=== PATIENT | female | born 1960 | race Caucasian/White ===

== ENCOUNTER 2022-01-21 18:14 | Inpatient (IN) | payer MEDICARE, OTHER ==
[~2022-01-21] VITALS: Ht 147.3 cm; Wt 108.7 kg
[2022-01-21 19:45] LABS: BASOPHILS # (AUTO) 0.1 (0.0-0.1); BASOPHILS % 0.3 % (0.0-1.0); EOSINOPHILS # (AUTO) 0.2 (0.0-0.4); EOSINOPHILS % 1.3 % (0.0-6.0); HEMATOCRIT 24.9 % (34.2-44.1); LYMPHOCYTES # (AUTO) 1.3 (1.0-3.2); LYMPHOCYTES % 7.4 % (18.0-39.1); MEAN CORPUSCULAR HEMOGLOBIN 28.9 pg (28-32); MEAN CORPUSCULAR HGB CONC 32.1 g/dL (31-35); MEAN CORPUSCULAR VOLUME 89.9 fL (81-99); MONOCYTES # (AUTO) 1.4 (0.2-0.8); MONOCYTES % 7.9 % (4.4-11.3); NEUTROPHILS # (AUTO) 14.2 (2.1-6.9); NEUTROPHILS % 82.5 % (38.7-80.0); PLATELET COUNT 427 x10e3/uL (140-360); RED BLOOD COUNT 2.77 x10e6/uL (3.6-5.1); RED CELL DISTRIBUTION WIDTH 13.2 % (11.7-14.4)
[2022-01-21 20:04] LABS: ALBUMIN 1.8 g/dL (3.5-5.0); ALBUMIN/GLOBULIN RATIO 0.3 (0.8-2.0); CALCIUM 9.4 mg/dL (8.4-10.2); CREATININE, SERUM 2.42 mg/dL (0.57-1.11)
[2022-01-21] MEDS ORDERED: ACETAMINOPHEN 325 MG TAB PO ONE (20:15)
[2022-01-21 20:23] LABS: CLARITY,URINE SL CLOUDY (CLEAR); COLOR,URINE YELLOW (YELLOW); KETONES,URINE NEGATIVE (NEGATIVE); LEUKOCYTE ESTERASE ,URINE NEGATIVE (NEGATIVE); NITRITE,URINE NEGATIVE (NEGATIVE); PROTEIN,URINE DIPSTICK >=300 (NEGATIVE); URINE UROBILINOGEN 0.2 mg/dL (0.2 - 1)
[2022-01-21] MEDS ORDERED: HEPARIN SOD (PORCINE) 5,000 UNIT/ML VIAL IV ONE ×2 (20:30→21:15)
[2022-01-21] MEDS ORDERED: SODIUM CHLORIDE 0.9% 1000ML 1,000 ML IV SCH ×2 (20:30→21:00)
[2022-01-21] MEDS ORDERED: HEPARIN 25,000 UNIT 25,000 UNIT in DEXTROSE 5% 250ML 250 ML IV SCH (20:30)
[2022-01-21] MEDS ORDERED: ASPIRIN 81 MG CHEW TAB PO ONE ×2 (20:30→21:00)
[2022-01-21] MEDS ORDERED: SODIUM CHLORIDE 0.9% 1000ML 1,000 ML ONE (20:30)
[2022-01-21 20:34] LABS: RBC,URINE 0-5 /HPF (0-5)
[2022-01-21 20:35] LABS: BACTERIA,URINE MODERATE /HPF; EPITHELIAL CELLS,URINE MANY /LPF
[2022-01-21 20:58] LABS: INR 1.19; PROTHROMBIN TIME 16.1 seconds (11.9-14.5)
[2022-01-21] MEDS ORDERED: Morphine 4mg Syringe 4 MG/ML INJ IV PRN (21:00)
[2022-01-21] MEDS ORDERED: ONDANSETRON HCL INJ 2MG/ML 2ML 2 MG/ML VIAL IV PRN (21:00)
[2022-01-21] MEDS: PIPERACILLIN/TAZOBACTAM 4.5 GM in SODIUM CHLORIDE 0.9% 100 ML IV SCH (21:21)
[2022-01-21] MEDS ORDERED: HEPARIN SOD (PORCINE) 5,000 UNIT/ML VIAL ONE (21:26)
[2022-01-21] MEDS ORDERED: HEPARIN 25,000 UNIT DRIP IV ONE (21:27)
[2022-01-21 22:11] VITALS: BP 116/40
[2022-01-21 22:17] VITALS: BP 116/40
[2022-01-21] MEDS: SODIUM CHLORIDE 0.9% 1000ML 1,000 ML IV SCH (22:48)
[2022-01-22] VITALS (8 sets, daily range): BP systolic 128–167; BP diastolic 50–63
[2022-01-22] MEDS ORDERED: BUMETANIDE2 MG PO (00:51)
[2022-01-22] MEDS ORDERED: BRIMONIDINE TART5 ML OU (00:51)
[2022-01-22] MEDS ORDERED: ATORVASTATIN CA40 MG PO (00:51)
[2022-01-22] MEDS ORDERED: MUPIROCIN22 GM TOP (00:51)
[2022-01-22] MEDS ORDERED: FAMOTIDINE20 MG PO (00:51)
[2022-01-22] MEDS ORDERED: CLOPIDOGREL75 MG PO (00:51)
[2022-01-22] MEDS ORDERED: ASPIRIN EC81 MG PO (00:51)
[2022-01-22] MEDS ORDERED: VITAMIN D2 PO (00:51)
[2022-01-22] MEDS ORDERED: NOVOLOG100 UNITS1 SQ (00:51)
[2022-01-22] MEDS ORDERED: METOLAZONE2.5 MG PO (00:51)
[2022-01-22] MEDS ORDERED: VALSARTAN40 MG PO (00:51)
[2022-01-22] MEDS ORDERED: LOPRESSOR25 MG PO (00:51)
[2022-01-22] MEDS ORDERED: DULOXETINE HCL60 MG PO (00:51)
[2022-01-22] MEDS ORDERED: TRESIBA FL200 UNIT/1 SQ (00:51)
[2022-01-22] MEDS ORDERED: DORZOLAMIDE-TIM10 ML PO (00:51)
[2022-01-22] MEDS ORDERED: LATANOPROST2.5 ML OU (00:51)
[2022-01-22 03:12] LABS: CREATINE KINASE MB 2.1 ng/mL (0-5.0)
[2022-01-22] MEDS: SODIUM CHLORIDE 0.9% 1000ML 1,000 ML IV SCH (06:49)
[2022-01-22 08:44] LABS: BASOPHILS # (AUTO) 0.1 (0.0-0.1); BASOPHILS % 0.4 % (0.0-1.0); EOSINOPHILS # (AUTO) 0.6 (0.0-0.4); EOSINOPHILS % 4.1 % (0.0-6.0); LYMPHOCYTES # (AUTO) 1.6 (1.0-3.2); LYMPHOCYTES % 11.7 % (18.0-39.1); MEAN CORPUSCULAR HEMOGLOBIN 28.6 pg (28-32); MEAN CORPUSCULAR HGB CONC 31.1 g/dL (31-35); MEAN CORPUSCULAR VOLUME 91.8 fL (81-99); MONOCYTES # (AUTO) 1.1 (0.2-0.8); MONOCYTES % 7.8 % (4.4-11.3); NEUTROPHILS # (AUTO) 10.6 (2.1-6.9); NEUTROPHILS % 75.6 % (38.7-80.0); PLATELET COUNT 380 x10e3/uL (140-360); RED BLOOD COUNT 2.31 x10e6/uL (3.6-5.1); RED CELL DISTRIBUTION WIDTH 13.3 % (11.7-14.4)
[2022-01-22 08:51] LABS: HEMATOCRIT 21.2 % (34.2-44.1); HEMOGLOBIN 6.6 g/dL (12.0-16.0)
[2022-01-22 09:21] LABS: ANION GAP 14.1 mmol/L (8-16); CREATININE, SERUM 2.57 mg/dL (0.57-1.11); POTASSIUM 4.1 mmol/L (3.5-5.1)
[2022-01-22] MEDS ORDERED: SODIUM CHLORIDE 0.9% 250ML 250 ML IV ONE (10:30)
[2022-01-22] MEDS ORDERED: DIPHENHYDRAMINE HCL INJ 50 MG/ML VIAL IV ONE (10:30)
[2022-01-22] MEDS ORDERED: DEXTROSE 50% SYRINGE 50 ML IV PRN (10:30)
[2022-01-22] MEDS ORDERED: ACETAMINOPHEN 325 MG TAB PO ONE (10:45)
[2022-01-22] MEDS ORDERED: HYDROCODONE/APAP 10MG-325MG TAB PO PRN (10:45)
[2022-01-22] MEDS ORDERED: SODIUM CHLORIDE 0.9% 250ML 250 ML IV NR (11:00)
[2022-01-22] MEDS: DULOXETINE HCL 30 MG DELAYED RELEASE PO SCH (11:40)
[2022-01-22] MEDS: METOPROLOL TARTRATE 25 MG TAB PO SCH ×2 (11:40→15:42)
[2022-01-22] MEDS: INSULIN LISPRO 100 UNIT/1 ML 3ML VIAL SQ SCH ×5 (11:41→21:00)
[2022-01-22] MEDS: PIPERACILLIN/TAZOBACTAM 4.5 GM in SODIUM CHLORIDE 0.9% 100 ML IV SCH ×2 (11:42→21:50)
[2022-01-22] MEDS: DORZOLAMIDE/TIMOLOL (OPTH SOL) 10 ML DRPETTE OP SCH ×2 (11:42→22:30)
[2022-01-22 11:50] LABS: THYROID STIMULATING HORMONE 1.828 uIU/mL (0.350-4.940)
[2022-01-22] MEDS: BRIMONIDINE TARTRATE (OPTH) 5 ML LIQD OP SCH ×2 (15:42→21:00)
[2022-01-22] MEDS: SENNA-S TABLET PO SCH (15:42)
[2022-01-22 15:50] LABS: CREATINE KINASE MB 3.5 ng/mL (0-5.0)
[2022-01-22] MEDS ORDERED: DIPHENHYDRAMINE HCL INJ 50 MG/ML VIAL ONE ×2 (16:50→17:22)
[2022-01-22] MEDS ORDERED: ACETAMINOPHEN 325 MG TAB ONE (16:51)
[2022-01-22] MEDS ORDERED: SODIUM CHLORIDE 0.9% 250ML 250 ML ONE ×2 (19:57→22:15)
[2022-01-22] MEDS ORDERED: INSULIN DEGLUDEC SC SCH (21:00)
[2022-01-22] MEDS: LATANOPROST(OPTH) 2.5 ML BTL OU SCH (21:55)
[2022-01-22] MEDS: ATORVASTATIN 40 MG TAB PO SCH (21:55)
[2022-01-22] MEDS: FAMOTIDINE 20 MG TAB PO SCH (21:55)
[2022-01-23] VITALS: BP 147/64
[2022-01-23 04:00] VITALS: BP 125/46
[2022-01-23 06:08] LABS: BASOPHILS # (AUTO) 0.1 (0.0-0.1); BASOPHILS % 0.4 % (0.0-1.0); EOSINOPHILS # (AUTO) 0.8 (0.0-0.4); EOSINOPHILS % 5.4 % (0.0-6.0); HEMATOCRIT 27.8 % (34.2-44.1); HEMOGLOBIN 8.8 g/dL (12.0-16.0); LYMPHOCYTES % 13.6 % (18.0-39.1); MEAN CORPUSCULAR HEMOGLOBIN 28.8 pg (28-32); MEAN CORPUSCULAR HGB CONC 31.7 g/dL (31-35); MEAN CORPUSCULAR VOLUME 90.8 fL (81-99); MONOCYTES # (AUTO) 1.2 (0.2-0.8); MONOCYTES % 8.3 % (4.4-11.3); NEUTROPHILS # (AUTO) 10.4 (2.1-6.9); NEUTROPHILS % 71.5 % (38.7-80.0); PLATELET COUNT 365 x10e3/uL (140-360); RED BLOOD COUNT 3.06 x10e6/uL (3.6-5.1); RED CELL DISTRIBUTION WIDTH 14.1 % (11.7-14.4)
[2022-01-23 06:36] LABS: ANION GAP 11.3 mmol/L (8-16); CALCIUM 9.1 mg/dL (8.4-10.2); CREATININE, SERUM 2.41 mg/dL (0.57-1.11); POTASSIUM 4.3 mmol/L (3.5-5.1)
[2022-01-23] MEDS: INSULIN LISPRO 100 UNIT/1 ML 3ML VIAL SQ SCH ×6 (07:30→21:00)
[2022-01-23] MEDS ORDERED: FUROSEMIDE INJ 10 MG/ML 4 ML VIAL IV ONE (07:30)
[2022-01-23 08:00] VITALS: BP 125/46
[2022-01-23] MEDS: PIPERACILLIN/TAZOBACTAM 4.5 GM in SODIUM CHLORIDE 0.9% 100 ML IV SCH ×2 (09:00→21:00)
[2022-01-23] MEDS: DULOXETINE HCL 30 MG DELAYED RELEASE PO SCH (09:00)
[2022-01-23] MEDS: MUPIROCIN 2% OINT 22 GM TUBE TOP SCH (09:00)
[2022-01-23] MEDS: BRIMONIDINE TARTRATE (OPTH) 5 ML LIQD OP SCH ×2 (09:00→17:00)
[2022-01-23] MEDS ORDERED: Vancomycin IV 750 MG in SODIUM CHLORIDE 0.9% 250ML 150 ML IV SCH (10:00)
[2022-01-23] MEDS: DORZOLAMIDE/TIMOLOL (OPTH SOL) 10 ML DRPETTE OP SCH ×2 (10:06→21:56)
[2022-01-23] MEDS: SENNA-S TABLET PO SCH ×2 (11:00→17:00)
[2022-01-23] MEDS: METOPROLOL TARTRATE 25 MG TAB PO SCH ×2 (11:00→17:00)
[2022-01-23] MEDS: IRON SUCROSE 100 MG in SODIUM CHLORIDE 0.9% 100 ML 100 ML IV SCH (12:00)
[2022-01-23] MEDS ORDERED: ENOXAPARIN SOD INJ 40 MG/0.4 ML SYR SC SCH (17:00)
[2022-01-23 20:00] VITALS: BP 101/34
[2022-01-23] MEDS: LATANOPROST(OPTH) 2.5 ML BTL OU SCH (21:00)
[2022-01-23] MEDS: FAMOTIDINE 20 MG TAB PO SCH (21:00)
[2022-01-23] MEDS: ATORVASTATIN 40 MG TAB PO SCH (21:00)
[2022-01-23] MEDS ORDERED: HOME MEDICATION--PATIENTS OWN SC SCH (21:00)
[2022-01-23 23:56] VITALS: BP 101/34
[2022-01-24] VITALS: BP 141/56
[2022-01-24 04:00] VITALS: BP 146/65
[2022-01-24 05:44] LABS: BASOPHILS # (AUTO) 0.1 (0.0-0.1); BASOPHILS % 0.5 % (0.0-1.0); EOSINOPHILS # (AUTO) 0.7 (0.0-0.4); EOSINOPHILS % 4.7 % (0.0-6.0); HEMOGLOBIN 8.6 g/dL (12.0-16.0); LYMPHOCYTES # (AUTO) 1.6 (1.0-3.2); LYMPHOCYTES % 11.5 % (18.0-39.1); MEAN CORPUSCULAR HEMOGLOBIN 29.1 pg (28-32); MEAN CORPUSCULAR HGB CONC 31.9 g/dL (31-35); MEAN CORPUSCULAR VOLUME 91.2 fL (81-99); MONOCYTES # (AUTO) 1.2 (0.2-0.8); MONOCYTES % 8.5 % (4.4-11.3); NEUTROPHILS # (AUTO) 10.5 (2.1-6.9); NEUTROPHILS % 74.1 % (38.7-80.0); PLATELET COUNT 385 x10e3/uL (140-360); RED BLOOD COUNT 2.96 x10e6/uL (3.6-5.1); RED CELL DISTRIBUTION WIDTH 14.6 % (11.7-14.4)
[2022-01-24 05:59] LABS: ANION GAP 12.7 mmol/L (8-16); CALCIUM 9.1 mg/dL (8.4-10.2); CREATININE, SERUM 3.04 mg/dL (0.57-1.11); POTASSIUM 4.7 mmol/L (3.5-5.1)
[2022-01-24] MEDS: INSULIN LISPRO 100 UNIT/1 ML 3ML VIAL SQ SCH ×7 (07:30→21:22)
[2022-01-24 07:58] VITALS: BP 105/43
[2022-01-24] MEDS: PIPERACILLIN/TAZOBACTAM 4.5 GM in SODIUM CHLORIDE 0.9% 100 ML IV SCH (09:20)
[2022-01-24] MEDS: METOPROLOL TARTRATE 25 MG TAB PO SCH ×2 (09:25→17:13)
[2022-01-24] MEDS: DULOXETINE HCL 30 MG DELAYED RELEASE PO SCH (09:25)
[2022-01-24] MEDS: SENNA-S TABLET PO SCH ×2 (09:25→17:13)
[2022-01-24] MEDS: MUPIROCIN 2% OINT 22 GM TUBE TOP SCH (09:26)
[2022-01-24] MEDS: BRIMONIDINE TARTRATE (OPTH) 5 ML LIQD OP SCH ×2 (09:31→17:13)
[2022-01-24] MEDS: DORZOLAMIDE/TIMOLOL (OPTH SOL) 10 ML DRPETTE OP SCH ×2 (09:31→22:30)
[2022-01-24 12:00] VITALS: BP 138/57
[2022-01-24] MEDS: IRON SUCROSE 100 MG in SODIUM CHLORIDE 0.9% 100 ML 100 ML IV SCH (13:45)
[2022-01-24] MEDS: SODIUM CHLORIDE 0.9% 1000ML 1,000 ML IV SCH (13:45)
[2022-01-24] MEDS: LINEZOLID 600 MG/D5W 300ML 300 ML IV SCH (15:00)
[2022-01-24 16:00] VITALS: BP 144/53
[2022-01-24] MEDS: ENOXAPARIN 30 MG/0.3 ML SYR SC SCH (17:13)
[2022-01-24 20:00] VITALS: BP 167/61
[2022-01-24] MEDS: LATANOPROST(OPTH) 2.5 ML BTL OU SCH (21:22)
[2022-01-24] MEDS: ATORVASTATIN 40 MG TAB PO SCH (21:22)
[2022-01-24] MEDS: FAMOTIDINE 20 MG TAB PO SCH (21:22)
[2022-01-25] VITALS (9 sets, daily range): BP systolic 100–169; BP diastolic 56–89
[2022-01-25] MEDS: LINEZOLID 600 MG/D5W 300ML 300 ML IV SCH ×2 (03:00→14:43)
[2022-01-25] MEDS: SODIUM CHLORIDE 0.9% 1000ML 1,000 ML IV SCH ×3 (03:48→22:22)
[2022-01-25 06:00] LABS: BASOPHILS # (AUTO) 0.1 (0.0-0.1); BASOPHILS % 0.4 % (0.0-1.0); EOSINOPHILS # (AUTO) 0.4 (0.0-0.4); EOSINOPHILS % 3.2 % (0.0-6.0); HEMATOCRIT 27.8 % (34.2-44.1); HEMOGLOBIN 8.5 g/dL (12.0-16.0); LYMPHOCYTES # (AUTO) 1.2 (1.0-3.2); LYMPHOCYTES % 8.7 % (18.0-39.1); MEAN CORPUSCULAR HEMOGLOBIN 28.7 pg (28-32); MEAN CORPUSCULAR HGB CONC 30.6 g/dL (31-35); MEAN CORPUSCULAR VOLUME 93.9 fL (81-99); MONOCYTES # (AUTO) 1.1 (0.2-0.8); MONOCYTES % 8.1 % (4.4-11.3); NEUTROPHILS # (AUTO) 10.8 (2.1-6.9); NEUTROPHILS % 78.6 % (38.7-80.0); PLATELET COUNT 398 x10e3/uL (140-360); RED BLOOD COUNT 2.96 x10e6/uL (3.6-5.1); RED CELL DISTRIBUTION WIDTH 14.6 % (11.7-14.4)
[2022-01-25 06:37] LABS: ALBUMIN 1.7 g/dL (3.5-5.0); ALBUMIN/GLOBULIN RATIO 0.3 (0.8-2.0); CALCIUM 9.4 mg/dL (8.4-10.2); CREATININE, SERUM 3.58 mg/dL (0.57-1.11); VANCOMYCIN,RANDOM 4.8 ug/mL
[2022-01-25] MEDS: INSULIN LISPRO 100 UNIT/1 ML 3ML VIAL SQ SCH ×7 (07:30→21:00)
[2022-01-25] MEDS: MUPIROCIN 2% OINT 22 GM TUBE TOP SCH (09:00)
[2022-01-25] MEDS: CEFTRIAXONE 2 GM in SODIUM CHLORIDE 0.9% 100 ML IV SCH (09:16)
[2022-01-25] MEDS: DULOXETINE HCL 30 MG DELAYED RELEASE PO SCH (09:18)
[2022-01-25] MEDS: METOPROLOL TARTRATE 25 MG TAB PO SCH (09:18)
[2022-01-25] MEDS: SENNA-S TABLET PO SCH ×2 (09:19→17:26)
[2022-01-25] MEDS: BRIMONIDINE TARTRATE (OPTH) 5 ML LIQD OP SCH ×2 (09:22→17:26)
[2022-01-25] MEDS: DORZOLAMIDE/TIMOLOL (OPTH SOL) 10 ML DRPETTE OP SCH ×2 (11:30→22:21)
[2022-01-25] MEDS: IRON SUCROSE 100 MG in SODIUM CHLORIDE 0.9% 100 ML 100 ML IV SCH (12:06)
[2022-01-25] MEDS: ACETAMINOPHEN 325 MG TAB PO PRN ×2 (14:43→22:50)
[2022-01-25] MEDS: ENOXAPARIN 30 MG/0.3 ML SYR SC SCH (17:26)
[2022-01-25] MEDS: LATANOPROST(OPTH) 2.5 ML BTL OU SCH (22:20)
[2022-01-25] MEDS: ATORVASTATIN 40 MG TAB PO SCH (22:20)
[2022-01-25] MEDS: FAMOTIDINE 20 MG TAB PO SCH (22:21)
[2022-01-26] VITALS (8 sets, daily range): BP systolic 133–174; BP diastolic 57–76
[2022-01-26] MEDS: LINEZOLID 600 MG/D5W 300ML 300 ML IV SCH ×2 (02:31→14:07)
[2022-01-26] MEDS: SODIUM CHLORIDE 0.9% 1000ML 1,000 ML IV SCH ×2 (05:30→14:55)
[2022-01-26 07:28] LABS: BASOPHILS # (AUTO) 0.1 (0.0-0.1); BASOPHILS % 0.4 % (0.0-1.0); EOSINOPHILS # (AUTO) 0.8 (0.0-0.4); EOSINOPHILS % 5.5 % (0.0-6.0); HEMATOCRIT 30.1 % (34.2-44.1); HEMOGLOBIN 9.2 g/dL (12.0-16.0); LYMPHOCYTES # (AUTO) 1.4 (1.0-3.2); LYMPHOCYTES % 10.2 % (18.0-39.1); MEAN CORPUSCULAR HEMOGLOBIN 28.3 pg (28-32); MEAN CORPUSCULAR HGB CONC 30.6 g/dL (31-35); MEAN CORPUSCULAR VOLUME 92.6 fL (81-99); MONOCYTES # (AUTO) 0.9 (0.2-0.8); MONOCYTES % 6.7 % (4.4-11.3); NEUTROPHILS # (AUTO) 10.6 (2.1-6.9); NEUTROPHILS % 76.1 % (38.7-80.0); PLATELET COUNT 475 x10e3/uL (140-360); RED BLOOD COUNT 3.25 x10e6/uL (3.6-5.1); RED CELL DISTRIBUTION WIDTH 14.6 % (11.7-14.4)
[2022-01-26] MEDS: INSULIN LISPRO 100 UNIT/1 ML 3ML VIAL SQ SCH ×7 (07:30→21:00)
[2022-01-26 07:48] LABS: ALBUMIN 1.7 g/dL (3.5-5.0); ALBUMIN/GLOBULIN RATIO 0.3 (0.8-2.0); ANION GAP 14.7 mmol/L (8-16); CREATININE, SERUM 3.45 mg/dL (0.57-1.11); POTASSIUM 4.7 mmol/L (3.5-5.1)
[2022-01-26] MEDS: SENNA-S TABLET PO SCH ×2 (08:06→16:49)
[2022-01-26] MEDS: MUPIROCIN 2% OINT 22 GM TUBE TOP SCH (08:06)
[2022-01-26] MEDS: BRIMONIDINE TARTRATE (OPTH) 5 ML LIQD OP SCH ×2 (08:37→16:49)
[2022-01-26] MEDS: CEFTRIAXONE 2 GM in SODIUM CHLORIDE 0.9% 100 ML IV SCH (08:37)
[2022-01-26] MEDS ORDERED: BUPIVACAINE HCL 0.5% 10ML MPF VIAL INJ ONE (10:50)
[2022-01-26] MEDS ORDERED: DEXAMETHASONE SOD PHOS INJ 4 MG/ML SDV ONE (10:50)
[2022-01-26 11:01] LABS: CREATININE,URINE RANDOM 55.45 mg/dL (47-110)
[2022-01-26] MEDS: DORZOLAMIDE/TIMOLOL (OPTH SOL) 10 ML DRPETTE OP SCH ×2 (11:18→21:47)
[2022-01-26] MEDS ORDERED: POVIDONE IODINE 0.05% 0.05 % ML PO ONE (11:52)
[2022-01-26] MEDS ORDERED: ONDANSETRON HCL INJ 2MG/ML 2ML 2 MG/ML VIAL ONE ×2 (11:52→12:58)
[2022-01-26] MEDS ORDERED: LIDOCAINE HCL 2% LOCAL INJ 5 ML SDV VIAL INJ ONE (11:52)
[2022-01-26] MEDS ORDERED: PROPOFOL IV EMULSION 10 MG/ML 20 ML VIAL ONE (11:52)
[2022-01-26] MEDS ORDERED: ATROPINE SULFATE 1 MG/ML VIAL ONE (11:52)
[2022-01-26] MEDS ORDERED: SEVOFLURANE INHAL SOLN 250 ML PEN BTL ONE (11:52)
[2022-01-26] MEDS ORDERED: MIDAZOLAM HCL 2 MG/2 ML VIAL ONE (12:35)
[2022-01-26] MEDS ORDERED: FENTANYL CITRATE/PF 100MCG/2 ML INJ ONE (12:35)
[2022-01-26] MEDS: DULOXETINE HCL 30 MG DELAYED RELEASE PO SCH (13:37)
[2022-01-26] MEDS ORDERED: CHLORASEPTIC SPRAY 177 ML BTL MM PRN (14:15)
[2022-01-26] MEDS: ENOXAPARIN 30 MG/0.3 ML SYR SC SCH (16:49)
[2022-01-26] MEDS: ATORVASTATIN 40 MG TAB PO SCH (21:47)
[2022-01-26] MEDS: FAMOTIDINE 20 MG TAB PO SCH (21:47)
[2022-01-26] MEDS: LATANOPROST(OPTH) 2.5 ML BTL OU SCH (21:47)
[2022-01-27] VITALS (8 sets, daily range): BP systolic 134–183; BP diastolic 62–91
[2022-01-27] MEDS: SODIUM CHLORIDE 0.9% 1000ML 1,000 ML IV SCH (00:35)
[2022-01-27] MEDS: LINEZOLID 600 MG/D5W 300ML 300 ML IV SCH ×2 (02:55→16:52)
[2022-01-27 04:57] LABS: BASOPHILS # (AUTO) 0.1 (0.0-0.1); BASOPHILS % 0.4 % (0.0-1.0); EOSINOPHILS # (AUTO) 0.6 (0.0-0.4); EOSINOPHILS % 4.4 % (0.0-6.0); HEMATOCRIT 29.4 % (34.2-44.1); HEMOGLOBIN 9.1 g/dL (12.0-16.0); LYMPHOCYTES # (AUTO) 0.9 (1.0-3.2); LYMPHOCYTES % 6.7 % (18.0-39.1); MEAN CORPUSCULAR HEMOGLOBIN 28.8 pg (28-32); MONOCYTES # (AUTO) 0.9 (0.2-0.8); NEUTROPHILS # (AUTO) 10.8 (2.1-6.9); NEUTROPHILS % 80.3 % (38.7-80.0); PLATELET COUNT 447 x10e3/uL (140-360); RED BLOOD COUNT 3.16 x10e6/uL (3.6-5.1); RED CELL DISTRIBUTION WIDTH 14.6 % (11.7-14.4)
[2022-01-27 05:24] LABS: ANION GAP 12.8 mmol/L (8-16); CALCIUM 8.3 mg/dL (8.4-10.2); CREATININE, SERUM 3.05 mg/dL (0.57-1.11); POTASSIUM 4.8 mmol/L (3.5-5.1)
[2022-01-27] MEDS: DULOXETINE HCL 30 MG DELAYED RELEASE PO SCH (08:19)
[2022-01-27] MEDS: SENNA-S TABLET PO SCH ×2 (08:19→16:48)
[2022-01-27] MEDS: INSULIN LISPRO 100 UNIT/1 ML 3ML VIAL SQ SCH ×7 (08:20→20:47)
[2022-01-27] MEDS: BRIMONIDINE TARTRATE (OPTH) 5 ML LIQD OP SCH ×2 (08:20→16:51)
[2022-01-27] MEDS: CEFTRIAXONE 2 GM in SODIUM CHLORIDE 0.9% 100 ML IV SCH (08:20)
[2022-01-27] MEDS: MUPIROCIN 2% OINT 22 GM TUBE TOP SCH (08:30)
[2022-01-27] MEDS: DORZOLAMIDE/TIMOLOL (OPTH SOL) 10 ML DRPETTE OP SCH ×2 (10:37→22:35)
[2022-01-27] MEDS ORDERED: FUROSEMIDE INJ 10 MG/ML 4 ML VIAL IV ONE (11:45)
[2022-01-27] MEDS: ENOXAPARIN 30 MG/0.3 ML SYR SC SCH (16:50)
[2022-01-27] MEDS: HYDRALAZINE HCL 20 MG/ML VIAL IV PRN (16:52)
[2022-01-27] MEDS: ATORVASTATIN 40 MG TAB PO SCH (20:59)
[2022-01-27] MEDS: LATANOPROST(OPTH) 2.5 ML BTL OU SCH (21:00)
[2022-01-27] MEDS: FAMOTIDINE 20 MG TAB PO SCH (21:01)
[2022-01-28] VITALS (8 sets, daily range): BP systolic 139–172; BP diastolic 58–87
[2022-01-28] MEDS: LINEZOLID 600 MG/D5W 300ML 300 ML IV SCH ×2 (03:27→17:51)
[2022-01-28] MEDS: HYDRALAZINE HCL 20 MG/ML VIAL IV PRN ×2 (04:52→22:10)
[2022-01-28 06:08] LABS: BASOPHILS % 0.3 % (0.0-1.0); EOSINOPHILS # (AUTO) 0.5 (0.0-0.4); EOSINOPHILS % 4.1 % (0.0-6.0); HEMATOCRIT 30.8 % (34.2-44.1); HEMOGLOBIN 9.3 g/dL (12.0-16.0); LYMPHOCYTES % 8.3 % (18.0-39.1); MEAN CORPUSCULAR HEMOGLOBIN 28.4 pg (28-32); MEAN CORPUSCULAR HGB CONC 30.2 g/dL (31-35); MEAN CORPUSCULAR VOLUME 93.9 fL (81-99); MONOCYTES # (AUTO) 0.9 (0.2-0.8); MONOCYTES % 7.5 % (4.4-11.3); NEUTROPHILS # (AUTO) 9.2 (2.1-6.9); NEUTROPHILS % 79.2 % (38.7-80.0); PLATELET COUNT 427 x10e3/uL (140-360); RED BLOOD COUNT 3.28 x10e6/uL (3.6-5.1); RED CELL DISTRIBUTION WIDTH 14.7 % (11.7-14.4)
[2022-01-28 06:38] LABS: CALCIUM 9.3 mg/dL (8.4-10.2); CREATININE, SERUM 2.7 mg/dL (0.57-1.11)
[2022-01-28] MEDS: INSULIN LISPRO 100 UNIT/1 ML 3ML VIAL SQ SCH ×7 (07:30→21:00)
[2022-01-28] MEDS: MUPIROCIN 2% OINT 22 GM TUBE TOP SCH (08:12)
[2022-01-28] MEDS: DULOXETINE HCL 30 MG DELAYED RELEASE PO SCH (08:16)
[2022-01-28] MEDS: SENNA-S TABLET PO SCH ×2 (08:16→16:14)
[2022-01-28] MEDS: CEFTRIAXONE 2 GM in SODIUM CHLORIDE 0.9% 100 ML IV SCH (08:23)
[2022-01-28] MEDS: BRIMONIDINE TARTRATE (OPTH) 5 ML LIQD OP SCH ×2 (08:24→16:17)
[2022-01-28] MEDS: DORZOLAMIDE/TIMOLOL (OPTH SOL) 10 ML DRPETTE OP SCH ×2 (09:31→22:20)
[2022-01-28] MEDS: SODIUM BICARBONATE 650 MG TAB PO SCH (16:12)
[2022-01-28] MEDS: METOPROLOL TARTRATE 25 MG TAB PO SCH (16:12)
[2022-01-28] MEDS: ENOXAPARIN 30 MG/0.3 ML SYR SC SCH (16:44)
[2022-01-28] MEDS: LATANOPROST(OPTH) 2.5 ML BTL OU SCH (21:09)
[2022-01-28] MEDS: ATORVASTATIN 40 MG TAB PO SCH (21:11)
[2022-01-28] MEDS: FAMOTIDINE 20 MG TAB PO SCH (21:11)
[2022-01-29] VITALS (8 sets, daily range): BP systolic 144–180; BP diastolic 55–64
[2022-01-29] MEDS: LINEZOLID 600 MG/D5W 300ML 300 ML IV SCH ×2 (03:00→16:26)
[2022-01-29] MEDS: INSULIN LISPRO 100 UNIT/1 ML 3ML VIAL SQ SCH ×7 (07:30→21:00)
[2022-01-29 07:41] LABS: CALCIUM 9.4 mg/dL (8.4-10.2); CREATININE, SERUM 2.48 mg/dL (0.57-1.11)
[2022-01-29] MEDS: MUPIROCIN 2% OINT 22 GM TUBE TOP SCH (08:11)
[2022-01-29] MEDS: METOPROLOL TARTRATE 25 MG TAB PO SCH ×2 (08:11→16:25)
[2022-01-29] MEDS: DULOXETINE HCL 30 MG DELAYED RELEASE PO SCH (08:11)
[2022-01-29] MEDS: SODIUM BICARBONATE 650 MG TAB PO SCH ×2 (08:12→16:26)
[2022-01-29] MEDS: SENNA-S TABLET PO SCH ×2 (08:12→16:25)
[2022-01-29] MEDS: HYDRALAZINE HCL 20 MG/ML VIAL IV PRN (08:15)
[2022-01-29] MEDS: BRIMONIDINE TARTRATE (OPTH) 5 ML LIQD OP SCH ×2 (08:16→16:26)
[2022-01-29] MEDS: CEFTRIAXONE 2 GM in SODIUM CHLORIDE 0.9% 100 ML IV SCH (08:17)
[2022-01-29] MEDS: DORZOLAMIDE/TIMOLOL (OPTH SOL) 10 ML DRPETTE OP SCH ×2 (09:10→22:30)
[2022-01-29] MEDS: ENOXAPARIN 30 MG/0.3 ML SYR SC SCH (16:33)
[2022-01-29] MEDS: HYDRALAZINE HCL 25 MG TAB PO SCH (21:00)
[2022-01-29] MEDS: FAMOTIDINE 20 MG TAB PO SCH (21:00)
[2022-01-29] MEDS: LATANOPROST(OPTH) 2.5 ML BTL OU SCH (21:00)
[2022-01-29] MEDS: ATORVASTATIN 40 MG TAB PO SCH (21:00)
[2022-01-30] VITALS (9 sets, daily range): BP systolic 123–167; BP diastolic 54–79
[2022-01-30] MEDS: LINEZOLID 600 MG/D5W 300ML 300 ML IV SCH ×2 (03:00→15:54)
[2022-01-30 05:25] LABS: BASOPHILS # (AUTO) 0.1 (0.0-0.1); BASOPHILS % 0.4 % (0.0-1.0); EOSINOPHILS # (AUTO) 0.8 (0.0-0.4); EOSINOPHILS % 5.5 % (0.0-6.0); HEMATOCRIT 32.1 % (34.2-44.1); HEMOGLOBIN 9.9 g/dL (12.0-16.0); LYMPHOCYTES # (AUTO) 0.9 (1.0-3.2); LYMPHOCYTES % 6.8 % (18.0-39.1); MEAN CORPUSCULAR HEMOGLOBIN 28.8 pg (28-32); MEAN CORPUSCULAR HGB CONC 30.8 g/dL (31-35); MEAN CORPUSCULAR VOLUME 93.3 fL (81-99); MONOCYTES # (AUTO) 0.8 (0.2-0.8); MONOCYTES % 5.6 % (4.4-11.3); NEUTROPHILS # (AUTO) 11.1 (2.1-6.9); NEUTROPHILS % 80.7 % (38.7-80.0); PLATELET COUNT 475 x10e3/uL (140-360); RED BLOOD COUNT 3.44 x10e6/uL (3.6-5.1); RED CELL DISTRIBUTION WIDTH 14.7 % (11.7-14.4)
[2022-01-30 05:47] LABS: ANION GAP 13.6 mmol/L (8-16); CALCIUM 9.5 mg/dL (8.4-10.2); CREATININE, SERUM 2.77 mg/dL (0.57-1.11); POTASSIUM 4.6 mmol/L (3.5-5.1)
[2022-01-30] MEDS: INSULIN LISPRO 100 UNIT/1 ML 3ML VIAL SQ SCH ×7 (08:31→21:00)
[2022-01-30] MEDS: CEFTRIAXONE 2 GM in SODIUM CHLORIDE 0.9% 100 ML IV SCH (08:39)
[2022-01-30] MEDS: BRIMONIDINE TARTRATE (OPTH) 5 ML LIQD OP SCH ×2 (08:39→16:42)
[2022-01-30] MEDS: METOPROLOL TARTRATE 25 MG TAB PO SCH ×2 (08:40→16:44)
[2022-01-30] MEDS: SODIUM BICARBONATE 650 MG TAB PO SCH ×2 (08:40→16:43)
[2022-01-30] MEDS: DULOXETINE HCL 30 MG DELAYED RELEASE PO SCH (08:40)
[2022-01-30] MEDS: SENNA-S TABLET PO SCH ×2 (08:40→16:43)
[2022-01-30] MEDS: ASPIRIN 81 MG CHEW TAB PO SCH (08:40)
[2022-01-30] MEDS: HYDRALAZINE HCL 25 MG TAB PO SCH ×3 (08:40→21:59)
[2022-01-30] MEDS: DORZOLAMIDE/TIMOLOL (OPTH SOL) 10 ML DRPETTE OP SCH ×2 (10:51→22:30)
[2022-01-30] MEDS ORDERED: CEFTRIAXON2 GM/50 ML IVP (13:27)
[2022-01-30] MEDS ORDERED: ONDANSETRON HCL 4 MG ORAL DISINTEGRATING TAB PO PRN (15:45)
[2022-01-30] MEDS: PANTOPRAZOLE SOD 40 MG TABEC PO SCH (16:42)
[2022-01-30] MEDS: ENOXAPARIN 30 MG/0.3 ML SYR SC SCH (16:43)
[2022-01-30] MEDS: FUROSEMIDE 40 MG TAB PO SCH (18:21)
[2022-01-30] MEDS: LATANOPROST(OPTH) 2.5 ML BTL OU SCH (21:58)
[2022-01-30] MEDS: FAMOTIDINE 20 MG TAB PO SCH (21:59)
[2022-01-30] MEDS: ATORVASTATIN 40 MG TAB PO SCH (21:59)
[2022-01-31 01:27] VITALS: BP 157/54
[2022-01-31] MEDS: LINEZOLID 600 MG/D5W 300ML 300 ML IV SCH ×2 (03:00→18:09)
[2022-01-31 05:08] VITALS: BP 165/55
[2022-01-31] MEDS: FUROSEMIDE 40 MG TAB PO SCH ×2 (06:00→18:11)
[2022-01-31 07:09] LABS: ALBUMIN 1.8 g/dL (3.5-5.0); ALBUMIN/GLOBULIN RATIO 0.4 (0.8-2.0); ANION GAP 13.5 mmol/L (8-16); CALCIUM 9.7 mg/dL (8.4-10.2); CREATININE, SERUM 2.52 mg/dL (0.57-1.11); POTASSIUM 4.5 mmol/L (3.5-5.1)
[2022-01-31 08:01] VITALS: BP_SYST 165; BP_SYST 172; BP_DIAS 55; BP_DIAS 60
[2022-01-31] MEDS: INSULIN LISPRO 100 UNIT/1 ML 3ML VIAL SQ SCH ×6 (08:30→17:30)
[2022-01-31] MEDS: CEFTRIAXONE 2 GM in SODIUM CHLORIDE 0.9% 100 ML IV SCH (08:47)
[2022-01-31] MEDS: PANTOPRAZOLE SOD 40 MG TABEC PO SCH ×2 (08:48→18:15)
[2022-01-31] MEDS: BRIMONIDINE TARTRATE (OPTH) 5 ML LIQD OP SCH ×2 (08:49→18:15)
[2022-01-31] MEDS: DULOXETINE HCL 30 MG DELAYED RELEASE PO SCH (08:50)
[2022-01-31] MEDS: ASPIRIN 81 MG CHEW TAB PO SCH (08:50)
[2022-01-31] MEDS: HYDRALAZINE HCL 25 MG TAB PO SCH ×2 (08:50→18:15)
[2022-01-31] MEDS: METOPROLOL TARTRATE 25 MG TAB PO SCH ×2 (08:51→18:16)
[2022-01-31] MEDS: SENNA-S TABLET PO SCH ×2 (08:51→18:12)
[2022-01-31] MEDS: SODIUM BICARBONATE 650 MG TAB PO SCH ×2 (09:14→18:12)
[2022-01-31] MEDS: DORZOLAMIDE/TIMOLOL (OPTH SOL) 10 ML DRPETTE OP SCH (09:14)
[2022-01-31 12:00] VITALS: BP 156/54
[2022-01-31] MEDS ORDERED: LORATADINE/PSEUDOEPHEDRINE 24 HR SR TAB PO SCH (16:00)
[2022-01-31 16:56] VITALS: BP 169/63
[2022-01-31] MEDS ORDERED: CARBAMIDE PEROXIDE 15 ML BTL OT SCH (18:00)
[2022-01-31] MEDS ORDERED: HYDRALAZINE HCL 25 MG TAB PO SCH (22:00)
[2022-02-01] MEDS ORDERED: HYDRALAZINE HCL 25 MG TAB PO SCH
[2022-02-01] MEDS ORDERED: LINEZOLID 600 MG TAB PO SCH (03:00)
== END 2022-01-31 21:40 | DRG 240 ==
LOC: ER 18:25 → ERHOLD 20:57 → MED/SURG2 22:19
PROVIDERS: ADMIT Internal Medicine; ATTEND Internal Medicine
PROC: 30233N1 Transfusion of Nonautologous Red Blood Cells into Peripheral Vein, Percutaneous Approach (ICD-10-PCS; 2022-01-22)
PROC: 0Y6N0Z9 Detachment at Left Foot, Partial 1st Ray, Open Approach (ICD-10-PCS; principal; 2022-01-26 12:06)
DX: E11.52 Type 2 diabetes mellitus with diabetic peripheral angiopathy with gangrene (principal); M86.8X7 Other osteomyelitis, ankle and foot; Z68.43 Body mass index [BMI] 50.0-59.9, adult; I96 Gangrene, not elsewhere classified; E87.2 Acidosis; N18.4 Chronic kidney disease, stage 4 (severe); N17.9 Acute kidney failure, unspecified; L03.032 Cellulitis of left toe; E11.69 Type 2 diabetes mellitus with other specified complication; Z79.899 Other long term (current) drug therapy; E66.01 Morbid (severe) obesity due to excess calories; K21.9 Gastro-esophageal reflux disease without esophagitis; D63.8 Anemia in other chronic diseases classified elsewhere; J44.9 Chronic obstructive pulmonary disease, unspecified; E11.22 Type 2 diabetes mellitus with diabetic chronic kidney disease; I12.9 Hypertensive chronic kidney disease with stage 1 through stage 4 chronic kidney disease, or unspecified chronic kidney disease; E78.00 Pure hypercholesterolemia, unspecified; D50.9 Iron deficiency anemia, unspecified; Z20.822 Contact with and (suspected) exposure to COVID-19; H40.9 Unspecified glaucoma; G47.33 Obstructive sleep apnea (adult) (pediatric)
CPT/HCPCS: 36415; 70450; 71045; 80048; 80053; 80202; 81001; 82270; 82550; 82553; 82570; 82607; 82746; 82948; 83036; 83540; 83605; 83880; 84156; 84443; 84466; 84484; 85025; 85610; 85730; 86850; 86900; 86920; 87040; 87071; 87075; 87086; 87205; 88304; 88305; 88311; 93005; 93306; 93926; 93976; 94799; 97139; 99251; 99284; J0360; J0461; J0696; J1100; J1200; J1644; J1650; J1756; J1940; J2001; J2020; J2250; J2405; J2543; J3010; J7030; J7050; J7799; P9016; U0002

== ENCOUNTER 2022-02-16 20:13 | Inpatient (IN) | payer MEDICARE ==
[~2022-02-16] VITALS: Ht 147.3 cm; Wt 130.2 kg
[~2022-02-16 20:13] MED LIST: ASPIRIN EC81 MG PO; ATORVASTATIN CA40 MG PO; BRIMONIDINE TART5 ML OU; BUMETANIDE2 MG PO; CEFTRIAXON2 GM/50 ML IVP; CLOPIDOGREL75 MG PO; DORZOLAMIDE-TIM10 ML PO; DULOXETINE HCL60 MG PO; FAMOTIDINE20 MG PO; LATANOPROST2.5 ML OU; LOPRESSOR25 MG PO; METOLAZONE2.5 MG PO; MUPIROCIN22 GM TOP; NOVOLOG100 UNITS1 SQ; TRESIBA FL200 UNIT/1 SQ; VALSARTAN40 MG PO; VITAMIN D2 PO
[2022-02-16 21:15] LABS: BASOPHILS % 0.3 % (0.0-1.0); EOSINOPHILS # (AUTO) 0.6 (0.0-0.4); EOSINOPHILS % 4.4 % (0.0-6.0); HEMATOCRIT 24.1 % (34.2-44.1); HEMOGLOBIN 7.4 g/dL (12.0-16.0); LYMPHOCYTES # (AUTO) 1.7 (1.0-3.2); LYMPHOCYTES % 12.6 % (18.0-39.1); MEAN CORPUSCULAR HGB CONC 30.7 g/dL (31-35); MEAN CORPUSCULAR VOLUME 91.3 fL (81-99); MONOCYTES % 7.4 % (4.4-11.3); NEUTROPHILS # (AUTO) 8.9 (2.1-6.9); NEUTROPHILS % 65.8 % (38.7-80.0); PLATELET COUNT 265 x10e3/uL (140-360); RED BLOOD COUNT 2.64 x10e6/uL (3.6-5.1); RED CELL DISTRIBUTION WIDTH 14.9 % (11.7-14.4)
[2022-02-16 21:27] LABS: ALBUMIN 2.4 g/dL (3.5-5.0); ALBUMIN/GLOBULIN RATIO 0.6 (0.8-2.0); ANION GAP 17.2 mmol/L (8-16); CALCIUM 8.3 mg/dL (8.4-10.2); CREATININE, SERUM 3.16 mg/dL (0.57-1.11); POTASSIUM 3.2 mmol/L (3.5-5.1)
[2022-02-16] MEDS ORDERED: FUROSEMIDE INJ 10 MG/ML 4 ML VIAL IV ONE (22:00)
[2022-02-16] MEDS ORDERED: POTASSIUM CHLORIDE 20 MEQ TAB CR PO STA (23:21)
[2022-02-16] MEDS: DORZOLAMIDE/TIMOLOL (OPTH SOL) 10 ML DRPETTE OP SCH (23:30)
[2022-02-16 23:40] VITALS: BP 152/52
[2022-02-17] VITALS (9 sets, daily range): BP systolic 147–169; BP diastolic 43–66
[2022-02-17] MEDS ORDERED: GUAIFENESIN/DEXTROMETHORPHAN LIQD 5 ML UDC PO PRN
[2022-02-17] MEDS ORDERED: MELATONIN 3 MG TAB PO PRN
[2022-02-17] MEDS ORDERED: ACETAMINOPHEN 325 MG TAB PO PRN
[2022-02-17] MEDS ORDERED: ONDANSETRON HCL INJ 2MG/ML 2ML 2 MG/ML VIAL IV PRN
[2022-02-17] MEDS ORDERED: DEXTROSE 50% SYRINGE 50 ML IV PRN
[2022-02-17 04:15] LABS: BASOPHILS % 0.3 % (0.0-1.0); EOSINOPHILS # (AUTO) 0.6 (0.0-0.4); EOSINOPHILS % 5.4 % (0.0-6.0); HEMATOCRIT 22.5 % (34.2-44.1); LYMPHOCYTES % 8.5 % (18.0-39.1); MEAN CORPUSCULAR HEMOGLOBIN 28.2 pg (28-32); MEAN CORPUSCULAR HGB CONC 30.7 g/dL (31-35); MEAN CORPUSCULAR VOLUME 91.8 fL (81-99); MONOCYTES # (AUTO) 1.2 (0.2-0.8); MONOCYTES % 9.7 % (4.4-11.3); NEUTROPHILS # (AUTO) 8.1 (2.1-6.9); NEUTROPHILS % 67.6 % (38.7-80.0); PLATELET COUNT 268 x10e3/uL (140-360); RED BLOOD COUNT 2.45 x10e6/uL (3.6-5.1); RED CELL DISTRIBUTION WIDTH 15.1 % (11.7-14.4)
[2022-02-17 04:32] LABS: HEMOGLOBIN 6.9 g/dL (12.0-16.0)
[2022-02-17 04:34] LABS: % IRON SATURATION 13 % (15-50); ALANINE AMINOTRANSFERASE 257 IU/L (0-55); ALBUMIN 2.1 g/dL (3.5-5.0); ALBUMIN/GLOBULIN RATIO 0.6 (0.8-2.0); ALKALINE PHOSPHATASE 265 IU/L (40-150); ANION GAP 16.4 mmol/L (8-16); BLOOD UREA NITROGEN 59 mg/dL (7-26); BUN/CREATININE RATIO 19 (6-25); CALCIUM 8.3 mg/dL (8.4-10.2); CARBON DIOXIDE 24 mmol/L (22-29); CHLORIDE 103 mmol/L (98-107); GLUCOSE 218 mg/dL (74-118); IRON 30 ug/dL (50-170); MAGNESIUM 1.7 MG/DL (1.3-2.1); PHOSPHORUS 4.2 MG/DL (2.3-4.7); POTASSIUM 3.4 mmol/L (3.5-5.1); SODIUM 140 mmol/L (136-145); TOTAL IRON BINDING CAPACITY 234 ug/dL (261-478); TRANSFERRIN 167 mg/dL (180-382)
[2022-02-17 04:59] LABS: THYROID STIMULATING HORMONE 1.215 uIU/mL (0.350-4.940)
[2022-02-17 05:00] LABS: FERRITIN > 2000.00 ng/mL (4.63-204.00)
[2022-02-17 06:22] LABS: BAND NEUTROPHILS % (MANUAL) 1 %; EOSINOPHILS % (MANUAL) 4 % (0-7); LYMPHOCYTES % (MANUAL) 18 % (19-48); METAMYELOCYTES % (MANUAL) 2 % (0-0); MONOCYTES % (MANUAL) 9 % (3.4-9.0); NEUTROPHILS % (MANUAL) 66 % (40-74); PLATELET ESTIMATE ADEQUATE; RBC MORPHOLOGY COMMENT NORMAL
[2022-02-17 06:23] LABS: PLATELET MORPHOLOGY COMMENT FEW LARGE
[2022-02-17] MEDS ORDERED: SODIUM CHLORIDE 0.9% 250ML 250 ML IV ONE (06:45)
[2022-02-17] MEDS: INSULIN REGULAR, HUMAN 100 UNIT/1 ML SQ SCH ×4 (07:37→21:45)
[2022-02-17] MEDS: BUMETANIDE INJ 0.25MG/ML 4ML VIAL IV SCH (08:24)
[2022-02-17] MEDS: BRIMONIDINE TARTRATE (OPTH) 5 ML LIQD OP SCH ×2 (08:24→17:00)
[2022-02-17] MEDS: DOCUSATE SODIUM 100 MG CAP PO SCH ×2 (08:25→17:00)
[2022-02-17] MEDS: ASPIRIN 81 MG ENTERIC COATED PO SCH (08:25)
[2022-02-17] MEDS: METOPROLOL TARTRATE 25 MG TAB PO SCH ×2 (08:25→17:00)
[2022-02-17] MEDS: CLOPIDOGREL BISULFATE 75 MG TAB PO SCH (08:26)
[2022-02-17] MEDS: MULTIVITAMINS/MINERALS TAB PO SCH (08:26)
[2022-02-17] MEDS: CARBAMIDE PEROXIDE 15 ML BTL OT SCH ×3 (08:35→21:37)
[2022-02-17] MEDS: DORZOLAMIDE/TIMOLOL (OPTH SOL) 10 ML DRPETTE OP SCH ×2 (08:35→21:00)
[2022-02-17] MEDS ORDERED: FUROSEMIDE INJ 10 MG/ML 4 ML VIAL IV SCH (09:00)
[2022-02-17] MEDS ORDERED: SODIUM CHLORIDE 0.9% 250ML 250 ML ONE (11:50)
[2022-02-17] MEDS ORDERED: CHLOROTHIAZIDE SODIUM 500 MG VIAL IV ONE (14:45)
[2022-02-17] MEDS ORDERED: ENOXAPARIN SOD INJ 40 MG/0.4 ML SYR SC SCH (17:00)
[2022-02-17] MEDS ORDERED: CEFTRIAXONE NA IVP SCH (20:00)
[2022-02-17] MEDS ORDERED: [UNRECOGNIZED DRUG - OTHER] IVP SCH (20:00)
[2022-02-17] MEDS ORDERED: DEXTROSE ISO IVP SCH (20:00)
[2022-02-17 20:22] LABS: BASOPHILS # (AUTO) 0.1 (0.0-0.1); BASOPHILS % 0.5 % (0.0-1.0); EOSINOPHILS # (AUTO) 0.6 (0.0-0.4); EOSINOPHILS % 6.3 % (0.0-6.0); HEMATOCRIT 25.6 % (34.2-44.1); HEMOGLOBIN 7.6 g/dL (12.0-16.0); LYMPHOCYTES # (AUTO) 0.9 (1.0-3.2); LYMPHOCYTES % 9.1 % (18.0-39.1); MEAN CORPUSCULAR HEMOGLOBIN 28.1 pg (28-32); MEAN CORPUSCULAR HGB CONC 29.7 g/dL (31-35); MEAN CORPUSCULAR VOLUME 94.8 fL (81-99); MONOCYTES # (AUTO) 0.8 (0.2-0.8); MONOCYTES % 8.9 % (4.4-11.3); NEUTROPHILS # (AUTO) 6.6 (2.1-6.9); NEUTROPHILS % 69.7 % (38.7-80.0); PLATELET COUNT 285 x10e3/uL (140-360); RED CELL DISTRIBUTION WIDTH 15.7 % (11.7-14.4)
[2022-02-17] MEDS: CEFTRIAXONE 2 GM in SODIUM CHLORIDE 0.9% 100 ML IV SCH (20:23)
[2022-02-17] MEDS: LATANOPROST(OPTH) 2.5 ML BTL OU SCH (21:36)
[2022-02-17] MEDS: FAMOTIDINE 20 MG TAB PO SCH (21:36)
[2022-02-17] MEDS: ATORVASTATIN 40 MG TAB PO SCH (21:36)
[2022-02-17] MEDS: INSULIN GLARGINE 100 UNITS/ML VIAL SQ SCH (21:45)
[2022-02-18] VITALS (7 sets, daily range): BP systolic 122–189; BP diastolic 43–82
[2022-02-18] MEDS: ALBUTEROL SULF 0.083% NEB SOLN 3 ML NEB NEB PRN ×2 (00:25→13:15)
[2022-02-18] MEDS: ASPIRIN 81 MG ENTERIC COATED PO SCH (08:25)
[2022-02-18] MEDS: DOCUSATE SODIUM 100 MG CAP PO SCH ×2 (08:25→16:12)
[2022-02-18] MEDS: METOPROLOL TARTRATE 25 MG TAB PO SCH ×2 (08:26→16:13)
[2022-02-18] MEDS: CLOPIDOGREL BISULFATE 75 MG TAB PO SCH (08:26)
[2022-02-18] MEDS: MULTIVITAMINS/MINERALS TAB PO SCH (08:26)
[2022-02-18] MEDS: BUMETANIDE INJ 0.25MG/ML 4ML VIAL IV SCH (08:33)
[2022-02-18] MEDS: BRIMONIDINE TARTRATE (OPTH) 5 ML LIQD OP SCH ×2 (08:34→16:16)
[2022-02-18] MEDS: DORZOLAMIDE/TIMOLOL (OPTH SOL) 10 ML DRPETTE OP SCH ×2 (08:35→21:11)
[2022-02-18] MEDS: INSULIN REGULAR, HUMAN 100 UNIT/1 ML SQ SCH ×4 (08:36→21:00)
[2022-02-18] MEDS: CARBAMIDE PEROXIDE 15 ML BTL OT SCH ×3 (08:36→21:00)
[2022-02-18] MEDS ORDERED: CYMBALTA30 MG PO (10:06)
[2022-02-18] MEDS: DULOXETINE HCL 30 MG DELAYED RELEASE PO SCH (11:59)
[2022-02-18] MEDS: CEFTRIAXONE 2 GM in SODIUM CHLORIDE 0.9% 100 ML IV SCH (20:53)
[2022-02-18] MEDS: INSULIN GLARGINE 100 UNITS/ML VIAL SQ SCH (21:00)
[2022-02-18] MEDS: LATANOPROST(OPTH) 2.5 ML BTL OU SCH (21:00)
[2022-02-18] MEDS: FAMOTIDINE 20 MG TAB PO SCH (21:11)
[2022-02-18] MEDS: ATORVASTATIN 40 MG TAB PO SCH (21:12)
[2022-02-19] VITALS (8 sets, daily range): BP systolic 149–195; BP diastolic 58–71
[2022-02-19] MEDS: ALBUTEROL SULF 0.083% NEB SOLN 3 ML NEB NEB PRN ×3 (05:47→21:30)
[2022-02-19 07:30] LABS: ALBUMIN 2.4 g/dL (3.5-5.0); ALBUMIN/GLOBULIN RATIO 0.6 (0.8-2.0); ANION GAP 20.2 mmol/L (8-16); CALCIUM 8.7 mg/dL (8.4-10.2); CREATININE, SERUM 2.77 mg/dL (0.57-1.11); POTASSIUM 4.2 mmol/L (3.5-5.1)
[2022-02-19] MEDS ORDERED: METOLAZONE 5 MG TAB PO ONE (08:00)
[2022-02-19] MEDS: DOCUSATE SODIUM 100 MG CAP PO SCH ×2 (08:03→16:14)
[2022-02-19] MEDS: ASPIRIN 81 MG ENTERIC COATED PO SCH (08:03)
[2022-02-19] MEDS: CLOPIDOGREL BISULFATE 75 MG TAB PO SCH (08:04)
[2022-02-19] MEDS: METOPROLOL TARTRATE 25 MG TAB PO SCH ×2 (08:04→16:26)
[2022-02-19] MEDS: DULOXETINE HCL 30 MG DELAYED RELEASE PO SCH (08:04)
[2022-02-19] MEDS: MULTIVITAMINS/MINERALS TAB PO SCH (08:04)
[2022-02-19] MEDS: BUMETANIDE INJ 0.25MG/ML 4ML VIAL IV SCH (08:10)
[2022-02-19] MEDS: CARBAMIDE PEROXIDE 15 ML BTL OT SCH ×3 (08:14→21:30)
[2022-02-19] MEDS: BRIMONIDINE TARTRATE (OPTH) 5 ML LIQD OP SCH ×2 (08:15→16:26)
[2022-02-19] MEDS: INSULIN REGULAR, HUMAN 100 UNIT/1 ML SQ SCH ×4 (08:15→21:00)
[2022-02-19] MEDS: DORZOLAMIDE/TIMOLOL (OPTH SOL) 10 ML DRPETTE OP SCH ×2 (08:16→22:01)
[2022-02-19] MEDS: HYDRALAZINE HCL 20 MG/ML VIAL IV PRN (11:39)
[2022-02-19] MEDS ORDERED: DULOXETINE HCL 30 MG DELAYED RELEASE PO SCH (12:00)
[2022-02-19] MEDS: CEFTRIAXONE 2 GM in SODIUM CHLORIDE 0.9% 100 ML IV SCH (20:00)
[2022-02-19] MEDS: INSULIN GLARGINE 100 UNITS/ML VIAL SQ SCH (21:00)
[2022-02-19] MEDS: LATANOPROST(OPTH) 2.5 ML BTL OU SCH (21:30)
[2022-02-19] MEDS: ATORVASTATIN 40 MG TAB PO SCH (21:54)
[2022-02-19] MEDS: FAMOTIDINE 20 MG TAB PO SCH (21:55)
[2022-02-20] VITALS (9 sets, daily range): BP systolic 136–187; BP diastolic 48–70
[2022-02-20 05:32] LABS: BASOPHILS % 0.5 % (0.0-1.0); EOSINOPHILS # (AUTO) 0.9 (0.0-0.4); EOSINOPHILS % 11.8 % (0.0-6.0); LYMPHOCYTES % 12.7 % (18.0-39.1); MEAN CORPUSCULAR HEMOGLOBIN 27.8 pg (28-32); MEAN CORPUSCULAR HGB CONC 29.3 g/dL (31-35); MONOCYTES # (AUTO) 0.7 (0.2-0.8); MONOCYTES % 9.6 % (4.4-11.3); NEUTROPHILS % 64.8 % (38.7-80.0); PLATELET COUNT 329 x10e3/uL (140-360); RED BLOOD COUNT 2.41 x10e6/uL (3.6-5.1); RED CELL DISTRIBUTION WIDTH 16.6 % (11.7-14.4)
[2022-02-20 05:45] LABS: HEMATOCRIT 22.9 % (34.2-44.1)
[2022-02-20 05:48] LABS: HEMOGLOBIN 6.7 g/dL (12.0-16.0)
[2022-02-20 06:06] LABS: ALBUMIN 2.2 g/dL (3.5-5.0); ANION GAP 16.7 mmol/L (8-16); BILIRUBIN,DIRECT 0.3 mg/dL (0.0-0.5); CALCIUM 8.6 mg/dL (8.4-10.2); CREATININE, SERUM 2.73 mg/dL (0.57-1.11); POTASSIUM 3.7 mmol/L (3.5-5.1)
[2022-02-20] MEDS ORDERED: SODIUM CHLORIDE 0.9% 250ML 250 ML IV ONE ×2 (06:30→08:45)
[2022-02-20] MEDS: INSULIN REGULAR, HUMAN 100 UNIT/1 ML SQ SCH ×4 (07:30→21:00)
[2022-02-20] MEDS: FUROSEMIDE INJ 10 MG/ML 2 ML VIAL IV ONE ×2 (08:45→14:29)
[2022-02-20] MEDS: BRIMONIDINE TARTRATE (OPTH) 5 ML LIQD OP SCH ×2 (08:51→17:00)
[2022-02-20] MEDS: BUMETANIDE INJ 0.25MG/ML 4ML VIAL IV SCH ×3 (08:51→23:55)
[2022-02-20] MEDS: CARBAMIDE PEROXIDE 15 ML BTL OT SCH ×3 (08:52→21:00)
[2022-02-20] MEDS: ASPIRIN 81 MG ENTERIC COATED PO SCH (08:52)
[2022-02-20] MEDS: DORZOLAMIDE/TIMOLOL (OPTH SOL) 10 ML DRPETTE OP SCH ×2 (08:52→21:00)
[2022-02-20] MEDS: DOCUSATE SODIUM 100 MG CAP PO SCH ×2 (08:53→17:00)
[2022-02-20] MEDS: MULTIVITAMINS/MINERALS TAB PO SCH (08:53)
[2022-02-20] MEDS: METOPROLOL TARTRATE 25 MG TAB PO SCH ×2 (08:53→17:00)
[2022-02-20] MEDS: CLOPIDOGREL BISULFATE 75 MG TAB PO SCH (08:53)
[2022-02-20] MEDS: DULOXETINE HCL 30 MG DELAYED RELEASE PO SCH (08:53)
[2022-02-20] MEDS ORDERED: CYANOCOBALAMIN INJ 1,000 MCG/ML VIAL IM ONE (10:00)
[2022-02-20] MEDS: IRON SUCROSE 100 MG in SODIUM CHLORIDE 0.9% 100 ML 100 ML IV SCH (10:00)
[2022-02-20] MEDS ORDERED: FUROSEMIDE INJ 10 MG/ML 2 ML VIAL IV ONE (15:00)
[2022-02-20] MEDS: HYDRALAZINE HCL 20 MG/ML VIAL IV PRN (17:13)
[2022-02-20 17:26] LABS: CREATININE,URINE RANDOM 57.31 mg/dL (47-110)
[2022-02-20 17:39] LABS: TOTAL PROTEIN, URINE 312.9 mg/dL (1-14)
[2022-02-20] MEDS: CEFTRIAXONE 2 GM in SODIUM CHLORIDE 0.9% 100 ML IV SCH (20:00)
[2022-02-20] MEDS: INSULIN GLARGINE 100 UNITS/ML VIAL SQ SCH (21:00)
[2022-02-20] MEDS: ATORVASTATIN 40 MG TAB PO SCH (21:00)
[2022-02-20] MEDS: LATANOPROST(OPTH) 2.5 ML BTL OU SCH (21:00)
[2022-02-20] MEDS: FAMOTIDINE 20 MG TAB PO SCH (21:00)
[2022-02-20] MEDS: ALBUTEROL SULF 0.083% NEB SOLN 3 ML NEB NEB PRN (23:15)
[2022-02-21] VITALS (7 sets, daily range): BP systolic 134–179; BP diastolic 52–87
[2022-02-21] MEDS: BUMETANIDE INJ 0.25MG/ML 4ML VIAL IV SCH ×3 (06:00→17:13)
[2022-02-21 06:18] LABS: BASOPHILS % 0.4 % (0.0-1.0); EOSINOPHILS # (AUTO) 1.1 (0.0-0.4); EOSINOPHILS % 11.9 % (0.0-6.0); HEMATOCRIT 27.6 % (34.2-44.1); HEMOGLOBIN 8.4 g/dL (12.0-16.0); LYMPHOCYTES # (AUTO) 0.9 (1.0-3.2); LYMPHOCYTES % 10.4 % (18.0-39.1); MEAN CORPUSCULAR HEMOGLOBIN 27.6 pg (28-32); MEAN CORPUSCULAR HGB CONC 30.4 g/dL (31-35); MEAN CORPUSCULAR VOLUME 90.8 fL (81-99); MONOCYTES # (AUTO) 0.7 (0.2-0.8); MONOCYTES % 7.6 % (4.4-11.3); NEUTROPHILS # (AUTO) 6.2 (2.1-6.9); NEUTROPHILS % 69.1 % (38.7-80.0); PLATELET COUNT 382 x10e3/uL (140-360); RED BLOOD COUNT 3.04 x10e6/uL (3.6-5.1); RED CELL DISTRIBUTION WIDTH 17.7 % (11.7-14.4)
[2022-02-21 07:19] LABS: ALBUMIN 2.4 g/dL (3.5-5.0); ALBUMIN/GLOBULIN RATIO 0.6 (0.8-2.0); ANION GAP 17.3 mmol/L (8-16); CALCIUM 9.1 mg/dL (8.4-10.2); CREATININE, SERUM 2.45 mg/dL (0.57-1.11); POTASSIUM 3.3 mmol/L (3.5-5.1)
[2022-02-21] MEDS: INSULIN REGULAR, HUMAN 100 UNIT/1 ML SQ SCH ×3 (07:30→16:30)
[2022-02-21] MEDS: DOCUSATE SODIUM 100 MG CAP PO SCH ×2 (09:00→17:00)
[2022-02-21] MEDS: BRIMONIDINE TARTRATE (OPTH) 5 ML LIQD OP SCH ×2 (10:30→17:12)
[2022-02-21] MEDS: DORZOLAMIDE/TIMOLOL (OPTH SOL) 10 ML DRPETTE OP SCH ×2 (10:30→21:00)
[2022-02-21] MEDS: DULOXETINE HCL 30 MG DELAYED RELEASE PO SCH (10:31)
[2022-02-21] MEDS: CYANOCOBALAMIN INJ 1,000 MCG/ML VIAL IM SCH (10:31)
[2022-02-21] MEDS: MULTIVITAMINS/MINERALS TAB PO SCH (10:31)
[2022-02-21] MEDS: CARBAMIDE PEROXIDE 15 ML BTL OT SCH ×3 (10:31→21:00)
[2022-02-21] MEDS: METOPROLOL TARTRATE 25 MG TAB PO SCH ×2 (10:31→17:13)
[2022-02-21] MEDS: ASPIRIN 81 MG ENTERIC COATED PO SCH (10:31)
[2022-02-21] MEDS: CLOPIDOGREL BISULFATE 75 MG TAB PO SCH (10:32)
[2022-02-21] MEDS: METOLAZONE 5 MG TAB PO SCH (10:38)
[2022-02-21] MEDS: IRON SUCROSE 100 MG in SODIUM CHLORIDE 0.9% 100 ML 100 ML IV SCH (10:38)
[2022-02-21] MEDS: HYDRALAZINE HCL 20 MG/ML VIAL IV PRN ×2 (12:31→17:20)
[2022-02-21] MEDS ORDERED: POTASSIUM CHLORIDE 20MEQ/100ML 200 ML IV ONE (14:45)
[2022-02-21] MEDS ORDERED: MAGNESIUM SULF 1GRAM/DEXTROSE 100 ML IV ONE (14:45)
[2022-02-21] MEDS ORDERED: SODIUM CHLORIDE 0.9% 100 ML ONE (17:38)
[2022-02-21] MEDS: CEFTRIAXONE 2 GM in SODIUM CHLORIDE 0.9% 100 ML IV SCH (20:15)
[2022-02-21] MEDS: INSULIN LISPRO 100 UNIT/1 ML 3ML VIAL SQ SCH (21:00)
[2022-02-21] MEDS: LATANOPROST(OPTH) 2.5 ML BTL OU SCH (21:00)
[2022-02-21] MEDS ORDERED: INSULIN GLARGINE 100 UNITS/ML VIAL SQ SCH (21:00)
[2022-02-21] MEDS: FAMOTIDINE 20 MG TAB PO SCH (21:00)
[2022-02-21] MEDS: ATORVASTATIN 40 MG TAB PO SCH (21:00)
[2022-02-22] VITALS (10 sets, daily range): BP systolic 151–181; BP diastolic 52–72
[2022-02-22] MEDS: BUMETANIDE INJ 0.25MG/ML 4ML VIAL IV SCH ×3 (06:00→12:12)
[2022-02-22 06:11] LABS: BASOPHILS # (AUTO) 0.1 (0.0-0.1); BASOPHILS % 0.7 % (0.0-1.0); EOSINOPHILS # (AUTO) 0.9 (0.0-0.4); EOSINOPHILS % 9.6 % (0.0-6.0); HEMATOCRIT 27.7 % (34.2-44.1); HEMOGLOBIN 8.3 g/dL (12.0-16.0); LYMPHOCYTES # (AUTO) 0.6 (1.0-3.2); LYMPHOCYTES % 6.8 % (18.0-39.1); MEAN CORPUSCULAR HEMOGLOBIN 27.6 pg (28-32); MONOCYTES # (AUTO) 0.7 (0.2-0.8); MONOCYTES % 7.7 % (4.4-11.3); NEUTROPHILS # (AUTO) 6.7 (2.1-6.9); NEUTROPHILS % 74.4 % (38.7-80.0); PLATELET COUNT 361 x10e3/uL (140-360); RED BLOOD COUNT 3.01 x10e6/uL (3.6-5.1); RED CELL DISTRIBUTION WIDTH 18.2 % (11.7-14.4)
[2022-02-22 06:46] LABS: ALBUMIN 2.4 g/dL (3.5-5.0); ALBUMIN/GLOBULIN RATIO 0.6 (0.8-2.0); ANION GAP 15.7 mmol/L (8-16); CALCIUM 9.2 mg/dL (8.4-10.2); CREATININE, SERUM 2.86 mg/dL (0.57-1.11); PHOSPHORUS 4.3 MG/DL (2.3-4.7); POTASSIUM 3.7 mmol/L (3.5-5.1)
[2022-02-22] MEDS: DOCUSATE SODIUM 100 MG CAP PO SCH ×2 (09:00→16:47)
[2022-02-22] MEDS: METOLAZONE 5 MG TAB PO SCH (09:00)
[2022-02-22] MEDS: ASPIRIN 81 MG ENTERIC COATED PO SCH (09:00)
[2022-02-22] MEDS: DULOXETINE HCL 30 MG DELAYED RELEASE PO SCH (09:00)
[2022-02-22] MEDS: CLOPIDOGREL BISULFATE 75 MG TAB PO SCH (09:00)
[2022-02-22] MEDS: MULTIVITAMINS/MINERALS TAB PO SCH (09:00)
[2022-02-22] MEDS: METOPROLOL TARTRATE 25 MG TAB PO SCH ×2 (09:00→16:47)
[2022-02-22] MEDS: BRIMONIDINE TARTRATE (OPTH) 5 ML LIQD OP SCH ×2 (09:42→16:47)
[2022-02-22] MEDS: INSULIN LISPRO 100 UNIT/1 ML 3ML VIAL SQ SCH ×4 (09:42→21:00)
[2022-02-22] MEDS: CYANOCOBALAMIN INJ 1,000 MCG/ML VIAL IM SCH (09:42)
[2022-02-22] MEDS: DORZOLAMIDE/TIMOLOL (OPTH SOL) 10 ML DRPETTE OP SCH ×2 (09:42→21:00)
[2022-02-22] MEDS: CARBAMIDE PEROXIDE 15 ML BTL OT SCH ×3 (09:42→21:00)
[2022-02-22] MEDS: IRON SUCROSE 100 MG in SODIUM CHLORIDE 0.9% 100 ML 100 ML IV SCH (09:43)
[2022-02-22] MEDS: HYDRALAZINE HCL 20 MG/ML VIAL IV PRN (09:43)
[2022-02-22] MEDS ORDERED: LIDOCAINE HCL 2% LOCAL INJ 5 ML SDV VIAL INJ ONE (13:04)
[2022-02-22] MEDS ORDERED: PROPOFOL IV EMULSION 10 MG/ML 20 ML VIAL ONE (13:04)
[2022-02-22] MEDS ORDERED: MIDAZOLAM HCL 2 MG/2 ML VIAL ONE (13:14)
[2022-02-22] MEDS ORDERED: FENTANYL CITRATE/PF 100MCG/2 ML INJ ONE (13:14)
[2022-02-22] MEDS: BUMETANIDE 10 MG in SODIUM CHLORIDE 0.9% 100 ML 60 ML IV SCH ×2 (14:00→23:15)
[2022-02-22] MEDS: LATANOPROST(OPTH) 2.5 ML BTL OU SCH (21:00)
[2022-02-22] MEDS: CEFTRIAXONE 2 GM in SODIUM CHLORIDE 0.9% 100 ML IV SCH (21:46)
[2022-02-22] MEDS: FAMOTIDINE 20 MG TAB PO SCH (21:47)
[2022-02-22] MEDS: ATORVASTATIN 40 MG TAB PO SCH (21:47)
[2022-02-22] MEDS ORDERED: SODIUM CHLORIDE 0.9% 250ML 250 ML ONE (22:19)
[2022-02-22] MEDS: INSULIN GLARGINE 100 UNITS/ML VIAL SQ SCH (22:38)
[2022-02-23] VITALS (9 sets, daily range): BP systolic 135–176; BP diastolic 48–69
[2022-02-23 06:27] LABS: BASOPHILS # (AUTO) 0.1 (0.0-0.1); BASOPHILS % 0.6 % (0.0-1.0); EOSINOPHILS # (AUTO) 0.8 (0.0-0.4); EOSINOPHILS % 9.4 % (0.0-6.0); HEMATOCRIT 27.8 % (34.2-44.1); HEMOGLOBIN 8.3 g/dL (12.0-16.0); LYMPHOCYTES # (AUTO) 0.7 (1.0-3.2); LYMPHOCYTES % 7.6 % (18.0-39.1); MEAN CORPUSCULAR HEMOGLOBIN 27.9 pg (28-32); MEAN CORPUSCULAR HGB CONC 29.9 g/dL (31-35); MEAN CORPUSCULAR VOLUME 93.6 fL (81-99); MONOCYTES # (AUTO) 0.8 (0.2-0.8); MONOCYTES % 8.9 % (4.4-11.3); NEUTROPHILS # (AUTO) 6.6 (2.1-6.9); NEUTROPHILS % 72.9 % (38.7-80.0); PLATELET COUNT 404 x10e3/uL (140-360); RED BLOOD COUNT 2.97 x10e6/uL (3.6-5.1); RED CELL DISTRIBUTION WIDTH 18.2 % (11.7-14.4)
[2022-02-23 07:00] LABS: ALBUMIN 2.3 g/dL (3.5-5.0); ALBUMIN/GLOBULIN RATIO 0.6 (0.8-2.0); ANION GAP 16.6 mmol/L (8-16); CALCIUM 9.3 mg/dL (8.4-10.2); CREATININE, SERUM 2.74 mg/dL (0.57-1.11); POTASSIUM 3.6 mmol/L (3.5-5.1)
[2022-02-23] MEDS: INSULIN LISPRO 100 UNIT/1 ML 3ML VIAL SQ SCH ×4 (07:30→21:46)
[2022-02-23] MEDS: BRIMONIDINE TARTRATE (OPTH) 5 ML LIQD OP SCH ×2 (08:55→16:27)
[2022-02-23] MEDS: CYANOCOBALAMIN INJ 1,000 MCG/ML VIAL IM SCH (08:55)
[2022-02-23] MEDS: CARBAMIDE PEROXIDE 15 ML BTL OT SCH ×3 (08:56→21:38)
[2022-02-23] MEDS: METOLAZONE 5 MG TAB PO SCH (08:56)
[2022-02-23] MEDS: CLOPIDOGREL BISULFATE 75 MG TAB PO SCH (08:56)
[2022-02-23] MEDS: DOCUSATE SODIUM 100 MG CAP PO SCH ×2 (08:56→16:27)
[2022-02-23] MEDS: DORZOLAMIDE/TIMOLOL (OPTH SOL) 10 ML DRPETTE OP SCH ×2 (08:56→21:36)
[2022-02-23] MEDS: METOPROLOL TARTRATE 25 MG TAB PO SCH ×2 (08:56→16:27)
[2022-02-23] MEDS: DULOXETINE HCL 30 MG DELAYED RELEASE PO SCH (08:56)
[2022-02-23] MEDS: MULTIVITAMINS/MINERALS TAB PO SCH (08:56)
[2022-02-23] MEDS: BUMETANIDE 10 MG in SODIUM CHLORIDE 0.9% 100 ML 60 ML IV SCH ×2 (08:56→19:15)
[2022-02-23] MEDS: ASPIRIN 81 MG ENTERIC COATED PO SCH (08:56)
[2022-02-23] MEDS: IRON SUCROSE 100 MG in SODIUM CHLORIDE 0.9% 100 ML 100 ML IV SCH (08:56)
[2022-02-23] MEDS: CEFTRIAXONE 2 GM in SODIUM CHLORIDE 0.9% 100 ML IV SCH (21:35)
[2022-02-23] MEDS: FAMOTIDINE 20 MG TAB PO SCH (21:37)
[2022-02-23] MEDS: ATORVASTATIN 40 MG TAB PO SCH (21:37)
[2022-02-23] MEDS: LATANOPROST(OPTH) 2.5 ML BTL OU SCH (21:37)
[2022-02-23] MEDS: INSULIN GLARGINE 100 UNITS/ML VIAL SQ SCH (21:47)
[2022-02-24 01:47] VITALS: BP 162/58
[2022-02-24] MEDS: BUMETANIDE 10 MG in SODIUM CHLORIDE 0.9% 100 ML 60 ML IV SCH (05:15)
[2022-02-24 05:50] VITALS: BP 161/62
[2022-02-24] MEDS: INSULIN LISPRO 100 UNIT/1 ML 3ML VIAL SQ SCH ×3 (07:30→16:30)
[2022-02-24 07:38] LABS: BASOPHILS # (AUTO) 0.1 (0.0-0.1); BASOPHILS % 0.7 % (0.0-1.0); EOSINOPHILS # (AUTO) 0.8 (0.0-0.4); EOSINOPHILS % 9.2 % (0.0-6.0); HEMOGLOBIN 7.9 g/dL (12.0-16.0); LYMPHOCYTES # (AUTO) 0.8 (1.0-3.2); LYMPHOCYTES % 8.4 % (18.0-39.1); MEAN CORPUSCULAR HEMOGLOBIN 28.1 pg (28-32); MEAN CORPUSCULAR HGB CONC 30.4 g/dL (31-35); MEAN CORPUSCULAR VOLUME 92.5 fL (81-99); MONOCYTES # (AUTO) 0.8 (0.2-0.8); MONOCYTES % 8.8 % (4.4-11.3); NEUTROPHILS # (AUTO) 6.5 (2.1-6.9); NEUTROPHILS % 72.3 % (38.7-80.0); PLATELET COUNT 345 x10e3/uL (140-360); RED BLOOD COUNT 2.81 x10e6/uL (3.6-5.1); RED CELL DISTRIBUTION WIDTH 17.9 % (11.7-14.4)
[2022-02-24 08:00] VITALS: BP 161/62
[2022-02-24 08:00] LABS: ANION GAP 16.2 mmol/L (8-16); CALCIUM 8.7 mg/dL (8.4-10.2); CREATININE, SERUM 3.05 mg/dL (0.57-1.11); POTASSIUM 3.2 mmol/L (3.5-5.1)
[2022-02-24] MEDS: ASPIRIN 81 MG ENTERIC COATED PO SCH (09:00)
[2022-02-24] MEDS: CARBAMIDE PEROXIDE 15 ML BTL OT SCH ×2 (09:00→15:00)
[2022-02-24] MEDS: DULOXETINE HCL 30 MG DELAYED RELEASE PO SCH (09:00)
[2022-02-24] MEDS: DOCUSATE SODIUM 100 MG CAP PO SCH ×2 (09:00→16:53)
[2022-02-24] MEDS: CLOPIDOGREL BISULFATE 75 MG TAB PO SCH (09:00)
[2022-02-24] MEDS: DORZOLAMIDE/TIMOLOL (OPTH SOL) 10 ML DRPETTE OP SCH (09:00)
[2022-02-24] MEDS: CYANOCOBALAMIN INJ 1,000 MCG/ML VIAL IM SCH (09:00)
[2022-02-24] MEDS: BRIMONIDINE TARTRATE (OPTH) 5 ML LIQD OP SCH ×2 (09:00→16:53)
[2022-02-24] MEDS: METOLAZONE 5 MG TAB PO SCH (09:00)
[2022-02-24] MEDS: METOPROLOL TARTRATE 25 MG TAB PO SCH ×2 (09:00→16:53)
[2022-02-24] MEDS: MULTIVITAMINS/MINERALS TAB PO SCH (09:00)
[2022-02-24 09:07] VITALS: BP 171/60
[2022-02-24] MEDS ORDERED: POTASSIUM CHLORIDE 20MEQ/100ML 200 ML IV ONE (11:00)
[2022-02-24] MEDS ORDERED: SODIUM CHLORIDE 0.9% 500ML 500 ML ONE (11:01)
[2022-02-24 12:00] VITALS: BP 170/61
[2022-02-24] MEDS ORDERED: PROTONIX20 MG PO (13:42)
[2022-02-24] MEDS ORDERED: BUMETANIDE1 MG PO (13:42)
[2022-02-24] MEDS ORDERED: ONDANSETRON HCL 4 MG ORAL DISINTEGRATING TAB PO PRN (14:15)
[2022-02-24 16:02] VITALS: BP 137/59
[2022-02-24] MEDS ORDERED: BUMETANIDE 1 MG TAB PO SCH (17:00)
[2022-02-24] MEDS ORDERED: PANTOPRAZOLE SOD 40 MG TABEC PO SCH (20:00)
== END 2022-02-24 18:18 | disposition home health service (06) | DRG 291 ==
LOC: ER 20:19 → ERHOLD 22:39 → ICU 23:50 → OBSVTOIN 02-17 08:05 → MED/SURG2 02-17 09:02
PROVIDERS: ADMIT Internal Medicine; ATTEND Internal Medicine
PROC: 30233N1 Transfusion of Nonautologous Red Blood Cells into Peripheral Vein, Percutaneous Approach (ICD-10-PCS; 2022-02-17)
PROC: 5A09357 Assistance with Respiratory Ventilation, Less than 24 Consecutive Hours, Continuous Positive Airway Pressure (ICD-10-PCS; 2022-02-19)
PROC: 02HV33Z Insertion of Infusion Device into Superior Vena Cava, Percutaneous Approach (ICD-10-PCS; 2022-02-19)
PROC: 0DB78ZX Excision of Stomach, Pylorus, Via Natural or Artificial Opening Endoscopic, Diagnostic (ICD-10-PCS; 2022-02-22)
PROC: 0DB68ZX Excision of Stomach, Via Natural or Artificial Opening Endoscopic, Diagnostic (ICD-10-PCS; principal; 2022-02-22 19:28)
DX: I13.0 Hypertensive heart and chronic kidney disease with heart failure and stage 1 through stage 4 chronic kidney disease, or unspecified chronic kidney disease (principal); I50.33 Acute on chronic diastolic (congestive) heart failure; N17.9 Acute kidney failure, unspecified; Z68.43 Body mass index [BMI] 50.0-59.9, adult; E66.2 Morbid (severe) obesity with alveolar hypoventilation; N18.4 Chronic kidney disease, stage 4 (severe); M86.172 Other acute osteomyelitis, left ankle and foot; E11.52 Type 2 diabetes mellitus with diabetic peripheral angiopathy with gangrene; I96 Gangrene, not elsewhere classified; J96.10 Chronic respiratory failure, unspecified whether with hypoxia or hypercapnia; D62 Acute posthemorrhagic anemia; I27.81 Cor pulmonale (chronic); E88.09 Other disorders of plasma-protein metabolism, not elsewhere classified; E11.22 Type 2 diabetes mellitus with diabetic chronic kidney disease; E11.42 Type 2 diabetes mellitus with diabetic polyneuropathy; E78.5 Hyperlipidemia, unspecified; K20.90 Esophagitis, unspecified without bleeding; K29.70 Gastritis, unspecified, without bleeding; K31.7 Polyp of stomach and duodenum; K21.9 Gastro-esophageal reflux disease without esophagitis; I25.10 Atherosclerotic heart disease of native coronary artery without angina pectoris; M19.90 Unspecified osteoarthritis, unspecified site; E87.6 Hypokalemia; G47.33 Obstructive sleep apnea (adult) (pediatric); R79.89 Other specified abnormal findings of blood chemistry; Z89.412 Acquired absence of left great toe; Z90.49 Acquired absence of other specified parts of digestive tract; Z88.2 Allergy status to sulfonamides; Z88.8 Allergy status to other drugs, medicaments and biological substances; Z86.16 Personal history of COVID-19; Z95.5 Presence of coronary angioplasty implant and graft; Z95.820 Peripheral vascular angioplasty status with implants and grafts; H92.02 Otalgia, left ear; M79.89 Other specified soft tissue disorders; E11.649 Type 2 diabetes mellitus with hypoglycemia without coma; Z79.82 Long term (current) use of aspirin; Z79.4 Long term (current) use of insulin
CPT/HCPCS: 36415; 36568; 43239; 71045; 76700; 78580; 80048; 80053; 80076; 82270; 82570; 82607; 82728; 82746; 82948; 83540; 83735; 83880; 84100; 84156; 84443; 84466; 84484; 85025; 86850; 86900; 86920; 88305; 88312; 88342; 93005; 93971; 94660; 94799; 96372; 97139; 99251; 99284; A9540; G0378; J0360; J0696; J1756; J1815; J1817; J1940; J2001; J2250; J3010; J3420; J3475; J3480; J7040; J7050; P9016

== ENCOUNTER → 2022-03-31 | Outpatient (CLI) | payer MEDICARE ==
[~2022-03-31] MED LIST changes: +ALBUTEROL SULF 0.083% NEB SOLN 3 ML NEB ONE; +BUMETANIDE1 MG PO; +CYMBALTA30 MG PO; +PROTONIX20 MG PO
== END ==
LOC: RESP 14:23
PROVIDERS: ATTEND Internal Medicine Critical Care Medicine
DX: R09.02 Hypoxemia (principal); G47.33 Obstructive sleep apnea (adult) (pediatric); J81.1 Chronic pulmonary edema; K21.9 Gastro-esophageal reflux disease without esophagitis; I50.9 Heart failure, unspecified; Z68.41 Body mass index [BMI] 40.0-44.9, adult; J45.909 Unspecified asthma, uncomplicated
CPT/HCPCS: 94060; 94640; 94727; 94729

== ENCOUNTER 2022-06-22 00:57 | Inpatient (IN) | payer MEDICARE ==
[~2022-06-22] VITALS: Ht 149.9 cm; Wt 92.2 kg
[~2022-06-22 00:57] MED LIST changes: -ALBUTEROL SULF 0.083% NEB SOLN 3 ML NEB ONE
[2022-06-22] MEDS ORDERED: SODIUM CHLORIDE 0.9% 1000ML 1,000 ML IV STA (01:03)
[2022-06-22] MEDS ORDERED: ACETAMINOPHEN 325 MG TAB PO STA (01:03)
[2022-06-22] MEDS ORDERED: HYDRALAZINE HCL 20 MG/ML VIAL IV STA (01:18)
[2022-06-22 01:39] LABS: BASOPHILS # (AUTO) 0.1 (0.0-0.1); BASOPHILS % 0.8 % (0.0-1.0); EOSINOPHILS # (AUTO) 0.1 (0.0-0.4); EOSINOPHILS % 1.7 % (0.0-6.0); HEMATOCRIT 34.9 % (34.2-44.1); HEMOGLOBIN 10.3 g/dL (12.0-16.0); LYMPHOCYTES # (AUTO) 0.7 (1.0-3.2); LYMPHOCYTES % 10.8 % (18.0-39.1); MEAN CORPUSCULAR HEMOGLOBIN 27.3 pg (28-32); MEAN CORPUSCULAR HGB CONC 29.5 g/dL (31-35); MEAN CORPUSCULAR VOLUME 92.6 fL (81-99); MONOCYTES # (AUTO) 0.7 (0.2-0.8); MONOCYTES % 11.4 % (4.4-11.3); NEUTROPHILS # (AUTO) 4.7 (2.1-6.9); NEUTROPHILS % 74.7 % (38.7-80.0); PLATELET COUNT 258 x10e3/uL (140-360); RED BLOOD COUNT 3.77 x10e6/uL (3.6-5.1); RED CELL DISTRIBUTION WIDTH 14.8 % (11.7-14.4)
[2022-06-22] MEDS ORDERED: ALBUTEROL/IPRATROPIUM 3 ML NEB NEB STA (01:42)
[2022-06-22 01:58] LABS: ALBUMIN 2.1 g/dL (3.5-5.0); ALBUMIN/GLOBULIN RATIO 0.5 (0.8-2.0); ANION GAP 19.6 mmol/L (8-16); CALCIUM 9.5 mg/dL (8.4-10.2); CREATININE, SERUM 2.94 mg/dL (0.57-1.11); POTASSIUM 4.6 mmol/L (3.5-5.1)
[2022-06-22] MEDS ORDERED: FUROSEMIDE INJ 10 MG/ML 4 ML VIAL IV SCH (03:00)
[2022-06-22 06:18] LABS: ABG HCO3 32 mmol/L (22-26); ABG PCO2 50 mmHg (35-45); ABG PH 7.42 (7.35-7.45); ABG PO2 256 mmHg (80-105)
[2022-06-22 06:19] LABS: ABG TCO2 34
[2022-06-22] MEDS: HYDRALAZINE HCL 20 MG/ML VIAL IV PRN (06:51)
[2022-06-22 10:14] LABS: CREATINE KINASE MB 1.6 ng/mL (0-5.0)
[2022-06-22] MEDS ORDERED: DEXTROSE 50% SYRINGE 50 ML IV PRN (10:30)
[2022-06-22] MEDS: DORZOLAMIDE/TIMOLOL (OPTH SOL) 10 ML DRPETTE OP SCH (10:30)
[2022-06-22 10:45] LABS: CLARITY,URINE CLOUDY (CLEAR); COLOR,URINE YELLOW (YELLOW)
[2022-06-22 10:46] LABS: LEUKOCYTE ESTERASE ,URINE NEGATIVE (NEGATIVE)
[2022-06-22 10:47] LABS: KETONES,URINE 1+ (NEGATIVE); NITRITE,URINE POSITIVE (NEGATIVE); PROTEIN,URINE DIPSTICK >=300 (NEGATIVE); URINE UROBILINOGEN 0.2 mg/dL (0.2 - 1)
[2022-06-22 11:12] LABS: BACTERIA,URINE MANY /HPF; EPITHELIAL CELLS,URINE MODERATE /LPF; WBC,URINE (MAN) >50 /HPF (0-5)
[2022-06-22] MEDS: ALBUTEROL/IPRATROPIUM 3 ML NEB NEB SCH ×4 (12:35→23:30)
[2022-06-22 13:27] LABS: CREATININE,URINE RANDOM 75.11 mg/dL (47-110)
[2022-06-22] MEDS: FUROSEMIDE INJ 10 MG/ML 4 ML VIAL IV SCH ×3 (13:58→23:25)
[2022-06-22] MEDS: PANTOPRAZOLE SOD 40 MG TABEC PO SCH (13:58)
[2022-06-22] MEDS: AZITHROMYCIN 250 MG TAB PO SCH (13:58)
[2022-06-22] MEDS: ACETAMINOPHEN 325 MG TAB PO PRN (13:59)
[2022-06-22] MEDS: INSULIN REGULAR, HUMAN 100 UNIT/1 ML SQ SCH ×3 (14:03→21:44)
[2022-06-22 14:06] LABS: TOTAL PROTEIN, URINE 1949.9 mg/dL (1-14)
[2022-06-22 14:15] LABS: INR 0.97; PROTHROMBIN TIME 13.8 seconds (11.9-14.5)
[2022-06-22 14:20] LABS: CREATINE KINASE MB 3.7 ng/mL (0-5.0)
[2022-06-22] MEDS: BRIMONIDINE TARTRATE (OPTH) 5 ML LIQD OP SCH (16:32)
[2022-06-22] MEDS: METOPROLOL TARTRATE 25 MG TAB PO SCH (18:45)
[2022-06-22] MEDS: LATANOPROST(OPTH) 2.5 ML BTL OU SCH (21:00)
[2022-06-22] MEDS: ATORVASTATIN 40 MG TAB PO SCH (21:42)
[2022-06-22 23:00] VITALS: BP 136/71
[2022-06-22] MEDS ORDERED: ACID-PEP20 MG PO (23:15)
[2022-06-23] VITALS (16 sets, daily range): BP systolic 88–171; BP diastolic 46–75
[2022-06-23] MEDS: ALBUTEROL/IPRATROPIUM 3 ML NEB NEB SCH ×2 (03:40→07:20)
[2022-06-23] MEDS: FUROSEMIDE INJ 10 MG/ML 4 ML VIAL IV SCH ×4 (05:38→23:11)
[2022-06-23 07:21] LABS: BASOPHILS % 0.3 % (0.0-1.0); EOSINOPHILS % 0.3 % (0.0-6.0); HEMATOCRIT 31.8 % (34.2-44.1); HEMOGLOBIN 9.3 g/dL (12.0-16.0); LYMPHOCYTES # (AUTO) 0.6 (1.0-3.2); LYMPHOCYTES % 9.2 % (18.0-39.1); MEAN CORPUSCULAR HEMOGLOBIN 27.7 pg (28-32); MEAN CORPUSCULAR HGB CONC 29.2 g/dL (31-35); MEAN CORPUSCULAR VOLUME 94.6 fL (81-99); MONOCYTES # (AUTO) 0.9 (0.2-0.8); MONOCYTES % 14.3 % (4.4-11.3); NEUTROPHILS # (AUTO) 4.6 (2.1-6.9); NEUTROPHILS % 75.6 % (38.7-80.0); PLATELET COUNT 231 x10e3/uL (140-360); RED BLOOD COUNT 3.36 x10e6/uL (3.6-5.1); RED CELL DISTRIBUTION WIDTH 15.4 % (11.7-14.4)
[2022-06-23 07:28] LABS: ALBUMIN 1.7 g/dL (3.5-5.0); ALBUMIN/GLOBULIN RATIO 0.4 (0.8-2.0); ANION GAP 17.3 mmol/L (8-16); CALCIUM 8.9 mg/dL (8.4-10.2); CREATININE, SERUM 3.21 mg/dL (0.57-1.11); POTASSIUM 3.3 mmol/L (3.5-5.1)
[2022-06-23] MEDS: INSULIN REGULAR, HUMAN 100 UNIT/1 ML SQ SCH ×4 (07:30→20:09)
[2022-06-23] MEDS: PANTOPRAZOLE SOD 40 MG TABEC PO SCH ×2 (07:30→17:05)
[2022-06-23] MEDS: BRIMONIDINE TARTRATE (OPTH) 5 ML LIQD OP SCH ×2 (08:41→17:06)
[2022-06-23] MEDS: DULOXETINE HCL 30 MG DELAYED RELEASE PO SCH (09:48)
[2022-06-23] MEDS: CLOPIDOGREL BISULFATE 75 MG TAB PO SCH (09:48)
[2022-06-23] MEDS: ASPIRIN 81 MG ENTERIC COATED PO SCH (09:49)
[2022-06-23] MEDS: AZITHROMYCIN 250 MG TAB PO SCH (09:49)
[2022-06-23] MEDS: MUPIROCIN 2% OINT 22 GM TUBE TOP SCH (09:49)
[2022-06-23] MEDS: METOPROLOL TARTRATE 25 MG TAB PO SCH ×2 (09:49→17:05)
[2022-06-23] MEDS: DORZOLAMIDE/TIMOLOL (OPTH SOL) 10 ML DRPETTE OP SCH ×2 (09:54→20:12)
[2022-06-23] MEDS ORDERED: ALBUTEROL SULF 0.083% NEB SOLN 3 ML NEB NEB ONE (10:45)
[2022-06-23] MEDS ORDERED: POTASSIUM CHLORIDE 20MEQ/100ML 200 ML IV ONE (11:00)
[2022-06-23] MEDS: ALBUTEROL SULF 0.083% NEB SOLN 3 ML NEB NEB SCH ×2 (15:10→19:30)
[2022-06-23] MEDS: OSELTAMIVIR PHOSPHATE 75 MG CAP PO SCH (17:05)
[2022-06-23] MEDS: ATORVASTATIN 40 MG TAB PO SCH (19:38)
[2022-06-23] MEDS: CLONIDINE HCL 0.1 MG TAB PO PRN (19:41)
[2022-06-23] MEDS: HYDRALAZINE HCL 20 MG/ML VIAL IV PRN (19:44)
[2022-06-23] MEDS: HEPARIN SOD (PORCINE) 5,000 UNIT/ML VIAL SC SCH (20:08)
[2022-06-23] MEDS: LATANOPROST(OPTH) 2.5 ML BTL OU SCH (21:00)
[2022-06-24] VITALS (23 sets, daily range): BP systolic 125–178; BP diastolic 55–87
[2022-06-24] MEDS: ALBUTEROL SULF 0.083% NEB SOLN 3 ML NEB NEB SCH ×4 (02:15→19:20)
[2022-06-24] MEDS: HYDRALAZINE HCL 20 MG/ML VIAL IV PRN (02:16)
[2022-06-24] MEDS: CLONIDINE HCL 0.1 MG TAB PO PRN (04:25)
[2022-06-24] MEDS: FUROSEMIDE INJ 10 MG/ML 4 ML VIAL IV SCH ×4 (05:30→23:42)
[2022-06-24 06:23] LABS: BASOPHILS % 0.4 % (0.0-1.0); EOSINOPHILS # (AUTO) 0.1 (0.0-0.4); EOSINOPHILS % 1.6 % (0.0-6.0); HEMATOCRIT 32.5 % (34.2-44.1); HEMOGLOBIN 9.4 g/dL (12.0-16.0); LYMPHOCYTES # (AUTO) 0.6 (1.0-3.2); MEAN CORPUSCULAR HEMOGLOBIN 27.3 pg (28-32); MEAN CORPUSCULAR HGB CONC 28.9 g/dL (31-35); MEAN CORPUSCULAR VOLUME 94.5 fL (81-99); MONOCYTES # (AUTO) 0.6 (0.2-0.8); MONOCYTES % 9.1 % (4.4-11.3); NEUTROPHILS # (AUTO) 5.6 (2.1-6.9); NEUTROPHILS % 80.5 % (38.7-80.0); PLATELET COUNT 251 x10e3/uL (140-360); RED BLOOD COUNT 3.44 x10e6/uL (3.6-5.1); RED CELL DISTRIBUTION WIDTH 15.7 % (11.7-14.4)
[2022-06-24 06:46] LABS: ALBUMIN 1.7 g/dL (3.5-5.0); ALBUMIN/GLOBULIN RATIO 0.4 (0.8-2.0); ANION GAP 17.6 mmol/L (8-16); CALCIUM 8.8 mg/dL (8.4-10.2); CREATININE, SERUM 3.49 mg/dL (0.57-1.11); POTASSIUM 3.6 mmol/L (3.5-5.1)
[2022-06-24] MEDS: INSULIN REGULAR, HUMAN 100 UNIT/1 ML SQ SCH ×4 (08:06→20:20)
[2022-06-24] MEDS: PANTOPRAZOLE SOD 40 MG TABEC PO SCH ×2 (08:27→17:12)
[2022-06-24] MEDS: CLOPIDOGREL BISULFATE 75 MG TAB PO SCH (08:28)
[2022-06-24] MEDS: METOPROLOL TARTRATE 25 MG TAB PO SCH ×2 (08:28→17:00)
[2022-06-24] MEDS: OSELTAMIVIR PHOSPHATE 75 MG CAP PO SCH ×2 (08:29→17:12)
[2022-06-24] MEDS: ASPIRIN 81 MG ENTERIC COATED PO SCH (08:29)
[2022-06-24] MEDS: AZITHROMYCIN 250 MG TAB PO SCH (08:29)
[2022-06-24] MEDS: HEPARIN SOD (PORCINE) 5,000 UNIT/ML VIAL SC SCH ×2 (08:30→20:19)
[2022-06-24] MEDS: DULOXETINE HCL 30 MG DELAYED RELEASE PO SCH (08:44)
[2022-06-24] MEDS: BRIMONIDINE TARTRATE (OPTH) 5 ML LIQD OP SCH ×2 (09:10→17:15)
[2022-06-24] MEDS: ACETAMINOPHEN 325 MG TAB PO PRN ×2 (09:10→20:56)
[2022-06-24] MEDS: MUPIROCIN 2% OINT 22 GM TUBE TOP SCH (09:10)
[2022-06-24] MEDS: DORZOLAMIDE/TIMOLOL (OPTH SOL) 10 ML DRPETTE OP SCH ×2 (09:11→22:30)
[2022-06-24] MEDS: FAMOTIDINE 20 MG TAB PO SCH (20:03)
[2022-06-24] MEDS: ATORVASTATIN 40 MG TAB PO SCH (20:03)
[2022-06-24] MEDS: LATANOPROST(OPTH) 2.5 ML BTL OU SCH (20:06)
[2022-06-24] MEDS: INSULIN GLARGINE 100 UNITS/ML VIAL SQ SCH (20:21)
[2022-06-25] VITALS (39 sets, daily range): BP systolic 117–185; BP diastolic 46–150
[2022-06-25] MEDS: ALBUTEROL SULF 0.083% NEB SOLN 3 ML NEB NEB SCH ×4 (02:55→19:05)
[2022-06-25] MEDS: ACETAMINOPHEN 325 MG TAB PO PRN ×3 (03:55→21:37)
[2022-06-25] MEDS: FUROSEMIDE INJ 10 MG/ML 4 ML VIAL IV SCH ×3 (05:00→18:04)
[2022-06-25 06:58] LABS: BASOPHILS % 0.2 % (0.0-1.0); EOSINOPHILS # (AUTO) 0.6 (0.0-0.4); EOSINOPHILS % 12.6 % (0.0-6.0); HEMATOCRIT 31.4 % (34.2-44.1); HEMOGLOBIN 9.2 g/dL (12.0-16.0); LYMPHOCYTES # (AUTO) 0.7 (1.0-3.2); LYMPHOCYTES % 14.6 % (18.0-39.1); MEAN CORPUSCULAR HEMOGLOBIN 27.4 pg (28-32); MEAN CORPUSCULAR HGB CONC 29.3 g/dL (31-35); MEAN CORPUSCULAR VOLUME 93.5 fL (81-99); MONOCYTES # (AUTO) 0.5 (0.2-0.8); MONOCYTES % 9.8 % (4.4-11.3); NEUTROPHILS # (AUTO) 3.1 (2.1-6.9); NEUTROPHILS % 62.4 % (38.7-80.0); PLATELET COUNT 215 x10e3/uL (140-360); RED BLOOD COUNT 3.36 x10e6/uL (3.6-5.1); RED CELL DISTRIBUTION WIDTH 15.4 % (11.7-14.4)
[2022-06-25 07:23] LABS: ALBUMIN 1.7 g/dL (3.5-5.0); ALBUMIN/GLOBULIN RATIO 0.4 (0.8-2.0); ANION GAP 17.1 mmol/L (8-16); CALCIUM 8.9 mg/dL (8.4-10.2); CREATININE, SERUM 3.78 mg/dL (0.57-1.11); POTASSIUM 3.1 mmol/L (3.5-5.1)
[2022-06-25] MEDS: INSULIN REGULAR, HUMAN 100 UNIT/1 ML SQ SCH ×4 (07:30→21:07)
[2022-06-25] MEDS: PANTOPRAZOLE SOD 40 MG TABEC PO SCH ×2 (07:32→16:50)
[2022-06-25] MEDS ORDERED: POTASSIUM CHLORIDE 20 MEQ TAB CR PO STA (08:05)
[2022-06-25] MEDS: CLOPIDOGREL BISULFATE 75 MG TAB PO SCH (08:26)
[2022-06-25] MEDS: DULOXETINE HCL 30 MG DELAYED RELEASE PO SCH (08:27)
[2022-06-25] MEDS: AZITHROMYCIN 250 MG TAB PO SCH (08:27)
[2022-06-25] MEDS: OSELTAMIVIR PHOSPHATE 75 MG CAP PO SCH ×2 (08:27→16:50)
[2022-06-25] MEDS: ASPIRIN 81 MG ENTERIC COATED PO SCH (08:27)
[2022-06-25] MEDS: HEPARIN SOD (PORCINE) 5,000 UNIT/ML VIAL SC SCH ×2 (08:29→21:03)
[2022-06-25] MEDS: BRIMONIDINE TARTRATE (OPTH) 5 ML LIQD OP SCH ×2 (08:39→16:50)
[2022-06-25] MEDS: METOPROLOL TARTRATE 25 MG TAB PO SCH ×2 (09:00→17:00)
[2022-06-25] MEDS: MUPIROCIN 2% OINT 22 GM TUBE TOP SCH (09:00)
[2022-06-25] MEDS: CLONIDINE HCL 0.1 MG TAB PO PRN (10:08)
[2022-06-25] MEDS: DORZOLAMIDE/TIMOLOL (OPTH SOL) 10 ML DRPETTE OP SCH ×2 (10:09→21:46)
[2022-06-25] MEDS: ONDANSETRON HCL INJ 2MG/ML 2ML 2 MG/ML VIAL IV PRN (10:18)
[2022-06-25] MEDS: HYDRALAZINE HCL 20 MG/ML VIAL IV PRN ×3 (13:18→22:26)
[2022-06-25] MEDS: LIDOCAINE 4% PATCH TP SCH (14:51)
[2022-06-25] MEDS: LINEZOLID 600 MG TAB PO SCH (16:50)
[2022-06-25] MEDS ORDERED: LINEZOLID 600 MG TAB PO SCH (17:00)
[2022-06-25] MEDS: FAMOTIDINE 20 MG TAB PO SCH (21:02)
[2022-06-25] MEDS: ATORVASTATIN 40 MG TAB PO SCH (21:02)
[2022-06-25] MEDS: INSULIN GLARGINE 100 UNITS/ML VIAL SQ SCH (21:08)
[2022-06-25] MEDS: LATANOPROST(OPTH) 2.5 ML BTL OU SCH (21:09)
[2022-06-26] VITALS (13 sets, daily range): BP systolic 132–170; BP diastolic 48–97
[2022-06-26] MEDS: FUROSEMIDE INJ 10 MG/ML 4 ML VIAL IV SCH ×2 (00:14→05:50)
[2022-06-26] MEDS: ALBUTEROL SULF 0.083% NEB SOLN 3 ML NEB NEB SCH ×4 (01:00→19:44)
[2022-06-26] MEDS: ACETAMINOPHEN 325 MG TAB PO PRN ×3 (03:38→18:20)
[2022-06-26 05:25] LABS: BASOPHILS % 0.2 % (0.0-1.0); EOSINOPHILS # (AUTO) 0.9 (0.0-0.4); EOSINOPHILS % 16.8 % (0.0-6.0); HEMATOCRIT 33.1 % (34.2-44.1); HEMOGLOBIN 9.8 g/dL (12.0-16.0); LYMPHOCYTES # (AUTO) 0.7 (1.0-3.2); LYMPHOCYTES % 13.6 % (18.0-39.1); MEAN CORPUSCULAR HEMOGLOBIN 27.5 pg (28-32); MEAN CORPUSCULAR HGB CONC 29.6 g/dL (31-35); MONOCYTES # (AUTO) 0.3 (0.2-0.8); NEUTROPHILS # (AUTO) 3.4 (2.1-6.9); PLATELET COUNT 260 x10e3/uL (140-360); RED BLOOD COUNT 3.56 x10e6/uL (3.6-5.1); RED CELL DISTRIBUTION WIDTH 15.1 % (11.7-14.4)
[2022-06-26 05:36] LABS: INR 0.84; PROTHROMBIN TIME 12.3 seconds (11.9-14.5)
[2022-06-26 05:37] LABS: PARTIAL THROMBOPLASTIN TIME 30.9 seconds (23.8-35.5)
[2022-06-26 05:51] LABS: ANION GAP 17.7 mmol/L (8-16); CALCIUM 9.1 mg/dL (8.4-10.2); CREATININE, SERUM 3.92 mg/dL (0.57-1.11); POTASSIUM 3.7 mmol/L (3.5-5.1)
[2022-06-26] MEDS: INSULIN REGULAR, HUMAN 100 UNIT/1 ML SQ SCH ×5 (07:30→20:56)
[2022-06-26] MEDS: PANTOPRAZOLE SOD 40 MG TABEC PO SCH ×2 (08:23→18:18)
[2022-06-26] MEDS: LINEZOLID 600 MG TAB PO SCH ×2 (09:36→18:18)
[2022-06-26] MEDS: ASPIRIN 81 MG ENTERIC COATED PO SCH (09:36)
[2022-06-26] MEDS: OSELTAMIVIR PHOSPHATE 75 MG CAP PO SCH (09:36)
[2022-06-26] MEDS: METOPROLOL TARTRATE 25 MG TAB PO SCH ×2 (09:37→17:00)
[2022-06-26] MEDS: CLOPIDOGREL BISULFATE 75 MG TAB PO SCH (09:37)
[2022-06-26] MEDS: LIDOCAINE 4% PATCH TP SCH (09:38)
[2022-06-26] MEDS: HEPARIN SOD (PORCINE) 5,000 UNIT/ML VIAL SC SCH ×2 (09:38→20:48)
[2022-06-26] MEDS: DORZOLAMIDE/TIMOLOL (OPTH SOL) 10 ML DRPETTE OP SCH ×2 (09:39→20:48)
[2022-06-26] MEDS: DULOXETINE HCL 30 MG DELAYED RELEASE PO SCH (09:41)
[2022-06-26] MEDS: BRIMONIDINE TARTRATE (OPTH) 5 ML LIQD OP SCH ×2 (09:41→17:00)
[2022-06-26] MEDS: LOPERAMIDE HCL 2 MG CAP PO PRN (10:45)
[2022-06-26] MEDS ORDERED: BUMETANIDE INJ 0.25MG/ML 4ML VIAL IV ONE (12:30)
[2022-06-26] MEDS: BUMETANIDE 10 MG in SODIUM CHLORIDE 0.9% 60 ML IV SCH ×2 (13:29→22:41)
[2022-06-26] MEDS: ZINC OXIDE / BALSAM PERU 30 GM TUBE TOP PRN (16:01)
[2022-06-26] MEDS: ZINC OXIDE 30 GM TUBE TOP SCH ×2 (16:05→20:56)
[2022-06-26] MEDS: MUPIROCIN 2% OINT 22 GM TUBE TOP SCH (16:05)
[2022-06-26] MEDS: OSELTAMIVIR PHOSPHATE 30 MG CAPSULE PO SCH (18:26)
[2022-06-26] MEDS: CLONIDINE HCL 0.1 MG TAB PO PRN (18:28)
[2022-06-26] MEDS: ATORVASTATIN 40 MG TAB PO SCH (20:37)
[2022-06-26] MEDS: FAMOTIDINE 20 MG TAB PO SCH (20:37)
[2022-06-26] MEDS: INSULIN GLARGINE 100 UNITS/ML VIAL SQ SCH (20:48)
[2022-06-26] MEDS: LATANOPROST(OPTH) 2.5 ML BTL OU SCH (20:50)
[2022-06-26] MEDS: ONDANSETRON HCL INJ 2MG/ML 2ML 2 MG/ML VIAL IV PRN (20:53)
[2022-06-26] MEDS: HYDRALAZINE HCL 20 MG/ML VIAL IV PRN (22:44)
[2022-06-27] VITALS (21 sets, daily range): BP systolic 90–178; BP diastolic 47–71
[2022-06-27] MEDS: ALBUTEROL SULF 0.083% NEB SOLN 3 ML NEB NEB SCH ×4 (01:58→19:25)
[2022-06-27] MEDS: HYDRALAZINE HCL 20 MG/ML VIAL IV PRN ×2 (03:36→22:56)
[2022-06-27] MEDS: INSULIN REGULAR, HUMAN 100 UNIT/1 ML SQ SCH ×4 (07:30→20:39)
[2022-06-27 08:58] LABS: BASOPHILS % 0.1 % (0.0-1.0); EOSINOPHILS # (AUTO) 1.1 (0.0-0.4); EOSINOPHILS % 15.2 % (0.0-6.0); HEMATOCRIT 33.9 % (34.2-44.1); LYMPHOCYTES # (AUTO) 0.8 (1.0-3.2); LYMPHOCYTES % 11.8 % (18.0-39.1); MEAN CORPUSCULAR HEMOGLOBIN 27.5 pg (28-32); MEAN CORPUSCULAR HGB CONC 29.5 g/dL (31-35); MEAN CORPUSCULAR VOLUME 93.1 fL (81-99); MONOCYTES # (AUTO) 0.5 (0.2-0.8); MONOCYTES % 7.2 % (4.4-11.3); NEUTROPHILS # (AUTO) 4.6 (2.1-6.9); NEUTROPHILS % 65.6 % (38.7-80.0); PLATELET COUNT 286 x10e3/uL (140-360); RED BLOOD COUNT 3.64 x10e6/uL (3.6-5.1); RED CELL DISTRIBUTION WIDTH 14.8 % (11.7-14.4)
[2022-06-27 09:11] LABS: ANION GAP 16.7 mmol/L (8-16); CALCIUM 8.4 mg/dL (8.4-10.2); CREATININE, SERUM 4.15 mg/dL (0.57-1.11); POTASSIUM 3.7 mmol/L (3.5-5.1)
[2022-06-27] MEDS: DULOXETINE HCL 30 MG DELAYED RELEASE PO SCH (09:13)
[2022-06-27] MEDS: ASPIRIN 81 MG ENTERIC COATED PO SCH (09:13)
[2022-06-27] MEDS: PANTOPRAZOLE SOD 40 MG TABEC PO SCH ×2 (09:13→17:48)
[2022-06-27] MEDS: CLOPIDOGREL BISULFATE 75 MG TAB PO SCH (09:14)
[2022-06-27] MEDS: OSELTAMIVIR PHOSPHATE 30 MG CAPSULE PO SCH ×2 (09:14→17:48)
[2022-06-27] MEDS: LINEZOLID 600 MG TAB PO SCH ×2 (09:14→17:48)
[2022-06-27] MEDS: METOPROLOL TARTRATE 25 MG TAB PO SCH ×2 (09:14→17:00)
[2022-06-27] MEDS: HEPARIN SOD (PORCINE) 5,000 UNIT/ML VIAL SC SCH ×2 (09:15→20:27)
[2022-06-27] MEDS: MUPIROCIN 2% OINT 22 GM TUBE TOP SCH (09:15)
[2022-06-27] MEDS: ZINC OXIDE 30 GM TUBE TOP SCH ×3 (09:16→20:26)
[2022-06-27] MEDS: BUMETANIDE 10 MG in SODIUM CHLORIDE 0.9% 60 ML IV SCH ×2 (09:16→20:25)
[2022-06-27] MEDS: LIDOCAINE 4% PATCH TP SCH (09:16)
[2022-06-27] MEDS: BRIMONIDINE TARTRATE (OPTH) 5 ML LIQD OP SCH ×2 (09:18→17:49)
[2022-06-27] MEDS: DORZOLAMIDE/TIMOLOL (OPTH SOL) 10 ML DRPETTE OP SCH ×2 (10:13→22:55)
[2022-06-27] MEDS: LOPERAMIDE HCL 2 MG CAP PO PRN (10:13)
[2022-06-27] MEDS: ACETAMINOPHEN 325 MG TAB PO PRN ×2 (10:47→18:15)
[2022-06-27] MEDS ORDERED: HEPARIN SOD (PORCINE) 1000 UNIT/ML SDV ONE (15:32)
[2022-06-27] MEDS: ATORVASTATIN 40 MG TAB PO SCH (20:25)
[2022-06-27] MEDS: FAMOTIDINE 20 MG TAB PO SCH (20:25)
[2022-06-27] MEDS: LATANOPROST(OPTH) 2.5 ML BTL OU SCH (20:26)
[2022-06-27] MEDS: ONDANSETRON HCL INJ 2MG/ML 2ML 2 MG/ML VIAL IV PRN (20:38)
[2022-06-27] MEDS: INSULIN GLARGINE 100 UNITS/ML VIAL SQ SCH (20:39)
[2022-06-27] MEDS ORDERED: SODIUM CHLORIDE 0.9% 1000ML 2,000 ML IV ONE (21:00)
[2022-06-27] MEDS ORDERED: MANNITOL 25% 12.5GM/50 ML VIAL IV SCH (21:00)
[2022-06-27] MEDS ORDERED: HEPARIN SOD (PORCINE) 1000 UNIT/ML SDV IV PRN (21:00)
[2022-06-27] MEDS ORDERED: MANNITOL 25% 12.5GM/50ML 50 ML ONE (21:03)
[2022-06-27] MEDS ORDERED: SODIUM CHLORIDE 0.9% 1000ML 2,000 ML INJ ONE (21:15)
[2022-06-27] MEDS ORDERED: SODIUM CHLORIDE 0.9% 1000ML 2,000 ML ONE (21:38)
[2022-06-27] MEDS: CLONIDINE HCL 0.1 MG TAB PO PRN (22:56)
[2022-06-28] VITALS (20 sets, daily range): BP systolic 102–152; BP diastolic 38–88
[2022-06-28] MEDS: ALBUTEROL SULF 0.083% NEB SOLN 3 ML NEB NEB SCH ×4 (02:25→19:05)
[2022-06-28] MEDS: BUMETANIDE 10 MG in SODIUM CHLORIDE 0.9% 60 ML IV SCH (05:07)
[2022-06-28 05:15] LABS: ALBUMIN 1.5 g/dL (3.5-5.0); ALBUMIN/GLOBULIN RATIO 0.4 (0.8-2.0); ANION GAP 14.8 mmol/L (8-16); CALCIUM 8.4 mg/dL (8.4-10.2); CREATININE, SERUM 3.49 mg/dL (0.57-1.11); POTASSIUM 3.8 mmol/L (3.5-5.1)
[2022-06-28] MEDS: HYDRALAZINE HCL 20 MG/ML VIAL IV PRN (06:29)
[2022-06-28] MEDS ORDERED: MANNITOL 25% 12.5GM/50 ML VIAL IV PRN (06:30)
[2022-06-28] MEDS ORDERED: SODIUM CHLORIDE 0.9% 1000ML 2,000 ML IV PRN (06:30)
[2022-06-28] MEDS: INSULIN REGULAR, HUMAN 100 UNIT/1 ML SQ SCH ×4 (07:30→20:36)
[2022-06-28] MEDS: CLOPIDOGREL BISULFATE 75 MG TAB PO SCH (08:08)
[2022-06-28] MEDS: ASPIRIN 81 MG ENTERIC COATED PO SCH (08:08)
[2022-06-28] MEDS: METOPROLOL TARTRATE 25 MG TAB PO SCH ×2 (08:09→16:07)
[2022-06-28] MEDS: METOLAZONE 5 MG TAB PO SCH (08:09)
[2022-06-28] MEDS: DULOXETINE HCL 30 MG DELAYED RELEASE PO SCH (08:11)
[2022-06-28] MEDS: OSELTAMIVIR PHOSPHATE 30 MG CAPSULE PO SCH ×2 (08:11→16:06)
[2022-06-28] MEDS: PANTOPRAZOLE SOD 40 MG TABEC PO SCH ×2 (08:11→16:09)
[2022-06-28] MEDS: ZINC OXIDE 30 GM TUBE TOP SCH ×3 (08:12→21:09)
[2022-06-28] MEDS: MUPIROCIN 2% OINT 22 GM TUBE TOP SCH (08:12)
[2022-06-28] MEDS: LINEZOLID 600 MG TAB PO SCH (08:12)
[2022-06-28] MEDS: HEPARIN SOD (PORCINE) 5,000 UNIT/ML VIAL SC SCH ×2 (08:15→21:12)
[2022-06-28] MEDS ORDERED: HYDROCODONE/APAP 5MG-325MG TAB PO PRN (08:15)
[2022-06-28] MEDS: LIDOCAINE 4% PATCH TP SCH (08:17)
[2022-06-28] MEDS: BRIMONIDINE TARTRATE (OPTH) 5 ML LIQD OP SCH ×2 (08:17→16:07)
[2022-06-28] MEDS: DORZOLAMIDE/TIMOLOL (OPTH SOL) 10 ML DRPETTE OP SCH ×2 (10:34→23:36)
[2022-06-28] MEDS: LOPERAMIDE HCL 2 MG CAP PO PRN (10:35)
[2022-06-28] MEDS ORDERED: ALBUMIN 25% 12.5GM 0.25 GM/ML BTL IV PRN (19:30)
[2022-06-28] MEDS ORDERED: HEPARIN SOD (PORCINE) 1000 UNIT/ML SDV IV PRN (19:30)
[2022-06-28] MEDS: INSULIN GLARGINE 100 UNITS/ML VIAL SQ SCH (20:36)
[2022-06-28] MEDS: ATORVASTATIN 40 MG TAB PO SCH (21:02)
[2022-06-28] MEDS: FAMOTIDINE 20 MG TAB PO SCH (21:03)
[2022-06-28] MEDS: LATANOPROST(OPTH) 2.5 ML BTL OU SCH (21:09)
[2022-06-29] VITALS (32 sets, daily range): BP systolic 127–168; BP diastolic 45–107
[2022-06-29] MEDS: BUMETANIDE 10 MG in SODIUM CHLORIDE 0.9% 60 ML IV SCH ×3 (00:52→21:50)
[2022-06-29] MEDS: ALBUTEROL SULF 0.083% NEB SOLN 3 ML NEB NEB SCH ×4 (02:25→19:40)
[2022-06-29 06:32] LABS: BASOPHILS % 0.5 % (0.0-1.0); EOSINOPHILS # (AUTO) 0.7 (0.0-0.4); EOSINOPHILS % 10.6 % (0.0-6.0); HEMATOCRIT 31.7 % (34.2-44.1); HEMOGLOBIN 9.1 g/dL (12.0-16.0); LYMPHOCYTES # (AUTO) 0.6 (1.0-3.2); LYMPHOCYTES % 8.7 % (18.0-39.1); MEAN CORPUSCULAR HEMOGLOBIN 27.2 pg (28-32); MEAN CORPUSCULAR HGB CONC 28.7 g/dL (31-35); MEAN CORPUSCULAR VOLUME 94.6 fL (81-99); MONOCYTES # (AUTO) 0.6 (0.2-0.8); MONOCYTES % 9.6 % (4.4-11.3); NEUTROPHILS # (AUTO) 4.6 (2.1-6.9); NEUTROPHILS % 70.1 % (38.7-80.0); PLATELET COUNT 267 x10e3/uL (140-360); RED BLOOD COUNT 3.35 x10e6/uL (3.6-5.1); RED CELL DISTRIBUTION WIDTH 14.9 % (11.7-14.4)
[2022-06-29 07:06] LABS: ALBUMIN/GLOBULIN RATIO 0.6 (0.8-2.0); ANION GAP 11.8 mmol/L (8-16); CALCIUM 8.5 mg/dL (8.4-10.2); CREATININE, SERUM 2.67 mg/dL (0.57-1.11); POTASSIUM 3.8 mmol/L (3.5-5.1)
[2022-06-29] MEDS: INSULIN REGULAR, HUMAN 100 UNIT/1 ML SQ SCH ×5 (07:30→20:37)
[2022-06-29] MEDS: PANTOPRAZOLE SOD 40 MG TABEC PO SCH ×2 (09:38→17:18)
[2022-06-29] MEDS: CLOPIDOGREL BISULFATE 75 MG TAB PO SCH (09:38)
[2022-06-29] MEDS: ASPIRIN 81 MG ENTERIC COATED PO SCH (09:38)
[2022-06-29] MEDS: DULOXETINE HCL 30 MG DELAYED RELEASE PO SCH (09:38)
[2022-06-29] MEDS: OSELTAMIVIR PHOSPHATE 30 MG CAPSULE PO SCH (09:39)
[2022-06-29] MEDS: METOPROLOL TARTRATE 25 MG TAB PO SCH ×2 (09:40→17:17)
[2022-06-29] MEDS: HEPARIN SOD (PORCINE) 5,000 UNIT/ML VIAL SC SCH ×2 (09:41→20:37)
[2022-06-29] MEDS: LIDOCAINE 4% PATCH TP SCH (09:42)
[2022-06-29] MEDS: ZINC OXIDE 30 GM TUBE TOP SCH ×3 (09:43→20:31)
[2022-06-29] MEDS: MUPIROCIN 2% OINT 22 GM TUBE TOP SCH (09:43)
[2022-06-29] MEDS: BRIMONIDINE TARTRATE (OPTH) 5 ML LIQD OP SCH ×2 (15:06→17:18)
[2022-06-29] MEDS: DORZOLAMIDE/TIMOLOL (OPTH SOL) 10 ML DRPETTE OP SCH ×2 (15:07→22:37)
[2022-06-29] MEDS: FAMOTIDINE 20 MG TAB PO SCH (20:26)
[2022-06-29] MEDS: LATANOPROST(OPTH) 2.5 ML BTL OU SCH (20:27)
[2022-06-29] MEDS: INSULIN GLARGINE 100 UNITS/ML VIAL SQ SCH (20:27)
[2022-06-29] MEDS: ACETAMINOPHEN 325 MG TAB PO PRN (21:49)
[2022-06-30] VITALS (15 sets, daily range): BP systolic 130–189; BP diastolic 42–93
[2022-06-30] MEDS: ONDANSETRON HCL INJ 2MG/ML 2ML 2 MG/ML VIAL IV PRN (00:59)
[2022-06-30] MEDS: ALBUTEROL SULF 0.083% NEB SOLN 3 ML NEB NEB SCH ×4 (01:30→19:30)
[2022-06-30 04:57] LABS: BASOPHILS % 0.4 % (0.0-1.0); EOSINOPHILS # (AUTO) 0.5 (0.0-0.4); EOSINOPHILS % 10.7 % (0.0-6.0); HEMATOCRIT 32.2 % (34.2-44.1); HEMOGLOBIN 9.2 g/dL (12.0-16.0); LYMPHOCYTES # (AUTO) 0.7 (1.0-3.2); LYMPHOCYTES % 13.6 % (18.0-39.1); MEAN CORPUSCULAR HGB CONC 28.6 g/dL (31-35); MEAN CORPUSCULAR VOLUME 94.4 fL (81-99); MONOCYTES # (AUTO) 0.7 (0.2-0.8); MONOCYTES % 13.6 % (4.4-11.3); NEUTROPHILS # (AUTO) 3.1 (2.1-6.9); NEUTROPHILS % 61.3 % (38.7-80.0); PLATELET COUNT 280 x10e3/uL (140-360); RED BLOOD COUNT 3.41 x10e6/uL (3.6-5.1); RED CELL DISTRIBUTION WIDTH 14.9 % (11.7-14.4)
[2022-06-30 05:19] LABS: ALBUMIN/GLOBULIN RATIO 0.5 (0.8-2.0); ANION GAP 15.8 mmol/L (8-16); CALCIUM 8.6 mg/dL (8.4-10.2); CREATININE, SERUM 3.42 mg/dL (0.57-1.11); POTASSIUM 3.8 mmol/L (3.5-5.1)
[2022-06-30] MEDS: HYDRALAZINE HCL 20 MG/ML VIAL IV PRN ×2 (06:09→22:21)
[2022-06-30] MEDS: INSULIN REGULAR, HUMAN 100 UNIT/1 ML SQ SCH ×4 (07:30→21:34)
[2022-06-30] MEDS: PANTOPRAZOLE SOD 40 MG TABEC PO SCH ×2 (08:43→17:00)
[2022-06-30] MEDS: METOPROLOL TARTRATE 25 MG TAB PO SCH ×2 (09:00→16:58)
[2022-06-30] MEDS: BRIMONIDINE TARTRATE (OPTH) 5 ML LIQD OP SCH ×2 (09:55→16:58)
[2022-06-30] MEDS: BUMETANIDE 10 MG in SODIUM CHLORIDE 0.9% 60 ML IV SCH ×2 (09:55→16:59)
[2022-06-30] MEDS: ASPIRIN 81 MG ENTERIC COATED PO SCH (09:55)
[2022-06-30] MEDS: CLOPIDOGREL BISULFATE 75 MG TAB PO SCH (09:55)
[2022-06-30] MEDS: ZINC OXIDE 30 GM TUBE TOP SCH ×3 (09:56→21:32)
[2022-06-30] MEDS: HEPARIN SOD (PORCINE) 5,000 UNIT/ML VIAL SC SCH (09:56)
[2022-06-30] MEDS: LOPERAMIDE HCL 2 MG CAP PO PRN (09:57)
[2022-06-30] MEDS: LIDOCAINE 4% PATCH TP SCH (09:57)
[2022-06-30] MEDS: DORZOLAMIDE/TIMOLOL (OPTH SOL) 10 ML DRPETTE OP SCH ×2 (11:52→22:34)
[2022-06-30] MEDS: INSULIN GLARGINE 100 UNITS/ML VIAL SQ SCH (21:00)
[2022-06-30] MEDS: FAMOTIDINE 20 MG TAB PO SCH (21:31)
[2022-06-30] MEDS: LATANOPROST(OPTH) 2.5 ML BTL OU SCH (22:00)
[2022-07-01] VITALS (20 sets, daily range): BP systolic 126–188; BP diastolic 34–96
[2022-07-01] MEDS: ALBUTEROL SULF 0.083% NEB SOLN 3 ML NEB NEB SCH ×4 (01:20→19:40)
[2022-07-01 06:10] LABS: BASOPHILS % 0.5 % (0.0-1.0); EOSINOPHILS # (AUTO) 0.4 (0.0-0.4); LYMPHOCYTES # (AUTO) 0.5 (1.0-3.2); LYMPHOCYTES % 8.1 % (18.0-39.1); MEAN CORPUSCULAR HEMOGLOBIN 27.4 pg (28-32); MEAN CORPUSCULAR VOLUME 94.2 fL (81-99); MONOCYTES # (AUTO) 0.8 (0.2-0.8); MONOCYTES % 12.2 % (4.4-11.3); NEUTROPHILS # (AUTO) 4.4 (2.1-6.9); NEUTROPHILS % 71.2 % (38.7-80.0); PLATELET COUNT 272 x10e3/uL (140-360); RED BLOOD COUNT 3.29 x10e6/uL (3.6-5.1)
[2022-07-01 06:25] LABS: ALBUMIN 1.9 g/dL (3.5-5.0); ALBUMIN/GLOBULIN RATIO 0.5 (0.8-2.0); ANION GAP 16.6 mmol/L (8-16); CALCIUM 8.9 mg/dL (8.4-10.2); CREATININE, SERUM 3.95 mg/dL (0.57-1.11); POTASSIUM 3.6 mmol/L (3.5-5.1)
[2022-07-01] MEDS: BUMETANIDE 10 MG in SODIUM CHLORIDE 0.9% 60 ML IV SCH ×2 (07:10→15:12)
[2022-07-01] MEDS: INSULIN REGULAR, HUMAN 100 UNIT/1 ML SQ SCH ×4 (07:30→21:19)
[2022-07-01] MEDS: METOPROLOL TARTRATE 25 MG TAB PO SCH ×2 (09:00→14:37)
[2022-07-01] MEDS: BRIMONIDINE TARTRATE (OPTH) 5 ML LIQD OP SCH ×2 (09:38→19:11)
[2022-07-01] MEDS: ASPIRIN 81 MG ENTERIC COATED PO SCH (09:38)
[2022-07-01] MEDS: CLOPIDOGREL BISULFATE 75 MG TAB PO SCH (09:38)
[2022-07-01] MEDS: ZINC OXIDE 30 GM TUBE TOP SCH ×3 (09:40→21:47)
[2022-07-01] MEDS: LIDOCAINE 4% PATCH TP SCH (09:42)
[2022-07-01] MEDS: PANTOPRAZOLE SOD 40 MG TABEC PO SCH (09:42)
[2022-07-01] MEDS: DORZOLAMIDE/TIMOLOL (OPTH SOL) 10 ML DRPETTE OP SCH (10:30)
[2022-07-01] MEDS ORDERED: HEPARIN SOD (PORCINE) 1000 UNIT/ML SDV IV PRN (11:15)
[2022-07-01] MEDS: HYDRALAZINE HCL 20 MG/ML VIAL IV PRN ×2 (14:01→19:28)
[2022-07-01] MEDS ORDERED: HYDRALAZINE HCL 20 MG/ML VIAL IV STA (15:52)
[2022-07-01] MEDS: CLONIDINE HCL 0.1 MG TAB PO PRN (20:08)
[2022-07-01] MEDS: LATANOPROST(OPTH) 2.5 ML BTL OU SCH (21:00)
[2022-07-01] MEDS: FAMOTIDINE 20 MG TAB PO SCH (21:09)
[2022-07-01] MEDS: INSULIN GLARGINE 100 UNITS/ML VIAL SQ SCH (21:20)
[2022-07-02] VITALS (14 sets, daily range): BP systolic 143–174; BP diastolic 47–83
[2022-07-02] MEDS: DORZOLAMIDE/TIMOLOL (OPTH SOL) 10 ML DRPETTE OP SCH ×2 (01:14→11:14)
[2022-07-02] MEDS: BUMETANIDE 10 MG in SODIUM CHLORIDE 0.9% 60 ML IV SCH ×2 (01:14→08:50)
[2022-07-02] MEDS: ALBUTEROL SULF 0.083% NEB SOLN 3 ML NEB NEB SCH ×4 (02:30→18:45)
[2022-07-02] MEDS: ACETAMINOPHEN 325 MG TAB PO PRN (03:47)
[2022-07-02 07:44] LABS: BASOPHILS % 0.2 % (0.0-1.0); EOSINOPHILS # (AUTO) 0.4 (0.0-0.4); EOSINOPHILS % 5.2 % (0.0-6.0); HEMATOCRIT 32.1 % (34.2-44.1); HEMOGLOBIN 9.3 g/dL (12.0-16.0); LYMPHOCYTES # (AUTO) 0.5 (1.0-3.2); LYMPHOCYTES % 6.7 % (18.0-39.1); MEAN CORPUSCULAR HEMOGLOBIN 27.2 pg (28-32); MEAN CORPUSCULAR VOLUME 93.9 fL (81-99); MONOCYTES % 11.8 % (4.4-11.3); NEUTROPHILS # (AUTO) 6.1 (2.1-6.9); NEUTROPHILS % 75.1 % (38.7-80.0); PLATELET COUNT 260 x10e3/uL (140-360); RED BLOOD COUNT 3.42 x10e6/uL (3.6-5.1); RED CELL DISTRIBUTION WIDTH 15.1 % (11.7-14.4)
[2022-07-02 08:03] LABS: ANION GAP 13.4 mmol/L (8-16); CALCIUM 8.8 mg/dL (8.4-10.2); CREATININE, SERUM 2.72 mg/dL (0.57-1.11); POTASSIUM 3.4 mmol/L (3.5-5.1)
[2022-07-02] MEDS: ASPIRIN 81 MG ENTERIC COATED PO SCH (08:45)
[2022-07-02] MEDS: METOPROLOL TARTRATE 25 MG TAB PO SCH ×2 (08:45→17:15)
[2022-07-02] MEDS: ZINC OXIDE 30 GM TUBE TOP SCH ×3 (08:45→21:37)
[2022-07-02] MEDS: BRIMONIDINE TARTRATE (OPTH) 5 ML LIQD OP SCH ×2 (08:46→17:14)
[2022-07-02] MEDS: LIDOCAINE 4% PATCH TP SCH (08:46)
[2022-07-02] MEDS: INSULIN REGULAR, HUMAN 100 UNIT/1 ML SQ SCH ×4 (08:49→21:34)
[2022-07-02 09:15] LABS: INR 1.02; PROTHROMBIN TIME 14.3 seconds (11.9-14.5)
[2022-07-02 09:16] LABS: PARTIAL THROMBOPLASTIN TIME 40.5 seconds (23.8-35.5)
[2022-07-02 11:52] LABS: APPEARANCE,CSF CLEAR (CLEAR)
[2022-07-02 11:53] LABS: COLOR,CSF COLORLESS (COLORLESS); TUBE NUMBER 1
[2022-07-02] MEDS: CLOPIDOGREL BISULFATE 75 MG TAB PO SCH (12:13)
[2022-07-02 12:25] LABS: WHITE BLOOD CELL,CSF 1 cells/uL (0-5)
[2022-07-02] MEDS: LATANOPROST(OPTH) 2.5 ML BTL OU SCH (21:00)
[2022-07-02] MEDS: FAMOTIDINE 20 MG TAB PO SCH (21:29)
[2022-07-02] MEDS: HYDRALAZINE HCL 20 MG/ML VIAL IV PRN (21:30)
[2022-07-02] MEDS: INSULIN GLARGINE 100 UNITS/ML VIAL SQ SCH (21:33)
[2022-07-03] VITALS (26 sets, daily range): BP systolic 93–178; BP diastolic 54–119
[2022-07-03] MEDS: BUMETANIDE 10 MG in SODIUM CHLORIDE 0.9% 60 ML IV SCH ×2 (01:12→08:01)
[2022-07-03] MEDS: DORZOLAMIDE/TIMOLOL (OPTH SOL) 10 ML DRPETTE OP SCH ×3 (01:13→22:36)
[2022-07-03] MEDS: ALBUTEROL SULF 0.083% NEB SOLN 3 ML NEB NEB SCH ×4 (02:45→19:00)
[2022-07-03] MEDS: ASPIRIN 81 MG ENTERIC COATED PO SCH (08:02)
[2022-07-03] MEDS: CLOPIDOGREL BISULFATE 75 MG TAB PO SCH (08:02)
[2022-07-03] MEDS: ZINC OXIDE 30 GM TUBE TOP SCH ×3 (08:03→21:28)
[2022-07-03] MEDS: METOPROLOL TARTRATE 25 MG TAB PO SCH ×2 (08:03→16:28)
[2022-07-03] MEDS: INSULIN REGULAR, HUMAN 100 UNIT/1 ML SQ SCH ×4 (08:06→22:21)
[2022-07-03] MEDS: BRIMONIDINE TARTRATE (OPTH) 5 ML LIQD OP SCH ×2 (08:21→15:52)
[2022-07-03] MEDS: LIDOCAINE 4% PATCH TP SCH (08:21)
[2022-07-03 11:56] LABS: BASOPHILS % 0.1 % (0.0-1.0); EOSINOPHILS # (AUTO) 0.7 (0.0-0.4); EOSINOPHILS % 7.3 % (0.0-6.0); HEMATOCRIT 31.1 % (34.2-44.1); HEMOGLOBIN 9.3 g/dL (12.0-16.0); LYMPHOCYTES # (AUTO) 0.8 (1.0-3.2); LYMPHOCYTES % 7.7 % (18.0-39.1); MEAN CORPUSCULAR HEMOGLOBIN 27.7 pg (28-32); MEAN CORPUSCULAR HGB CONC 29.9 g/dL (31-35); MEAN CORPUSCULAR VOLUME 92.6 fL (81-99); MONOCYTES # (AUTO) 1.1 (0.2-0.8); MONOCYTES % 11.4 % (4.4-11.3); NEUTROPHILS # (AUTO) 7.2 (2.1-6.9); NEUTROPHILS % 72.6 % (38.7-80.0); PLATELET COUNT 244 x10e3/uL (140-360); RED BLOOD COUNT 3.36 x10e6/uL (3.6-5.1); RED CELL DISTRIBUTION WIDTH 14.9 % (11.7-14.4)
[2022-07-03 12:15] LABS: ANION GAP 13.2 mmol/L (8-16); CALCIUM 8.6 mg/dL (8.4-10.2); CREATININE, SERUM 3.23 mg/dL (0.57-1.11); POTASSIUM 3.2 mmol/L (3.5-5.1)
[2022-07-03] MEDS: HYDRALAZINE HCL 20 MG/ML VIAL IV PRN (14:20)
[2022-07-03] MEDS: FAMOTIDINE 20 MG TAB PO SCH (21:27)
[2022-07-03] MEDS: LATANOPROST(OPTH) 2.5 ML BTL OU SCH (21:30)
[2022-07-03] MEDS: INSULIN GLARGINE 100 UNITS/ML VIAL SQ SCH (22:22)
[2022-07-04] VITALS (16 sets, daily range): BP systolic 104–152; BP diastolic 55–100
[2022-07-04 05:43] LABS: BASOPHILS % 0.5 % (0.0-1.0); EOSINOPHILS # (AUTO) 0.7 (0.0-0.4); EOSINOPHILS % 8.3 % (0.0-6.0); HEMATOCRIT 30.3 % (34.2-44.1); HEMOGLOBIN 9.4 g/dL (12.0-16.0); LYMPHOCYTES # (AUTO) 0.8 (1.0-3.2); LYMPHOCYTES % 9.1 % (18.0-39.1); MEAN CORPUSCULAR HEMOGLOBIN 27.2 pg (28-32); MEAN CORPUSCULAR VOLUME 87.8 fL (81-99); MONOCYTES # (AUTO) 0.9 (0.2-0.8); MONOCYTES % 11.1 % (4.4-11.3); NEUTROPHILS # (AUTO) 5.9 (2.1-6.9); NEUTROPHILS % 69.7 % (38.7-80.0); PLATELET COUNT 281 x10e3/uL (140-360); RED BLOOD COUNT 3.45 x10e6/uL (3.6-5.1); RED CELL DISTRIBUTION WIDTH 15.1 % (11.7-14.4)
[2022-07-04 06:17] LABS: ALBUMIN 1.6 g/dL (3.5-5.0); ALBUMIN/GLOBULIN RATIO 0.4 (0.8-2.0); ANION GAP 11.3 mmol/L (8-16); CALCIUM 8.7 mg/dL (8.4-10.2); CREATININE, SERUM 2.2 mg/dL (0.57-1.11); POTASSIUM 3.3 mmol/L (3.5-5.1)
[2022-07-04] MEDS: ALBUTEROL SULF 0.083% NEB SOLN 3 ML NEB NEB SCH ×4 (07:06→20:10)
[2022-07-04] MEDS: INSULIN REGULAR, HUMAN 100 UNIT/1 ML SQ SCH ×4 (07:13→21:15)
[2022-07-04] MEDS: CLOPIDOGREL BISULFATE 75 MG TAB PO SCH (08:03)
[2022-07-04] MEDS: ASPIRIN 81 MG ENTERIC COATED PO SCH (08:03)
[2022-07-04] MEDS: METOPROLOL TARTRATE 25 MG TAB PO SCH ×2 (08:04→16:40)
[2022-07-04] MEDS: LIDOCAINE 4% PATCH TP SCH (08:04)
[2022-07-04] MEDS: BRIMONIDINE TARTRATE (OPTH) 5 ML LIQD OP SCH ×2 (08:05→16:40)
[2022-07-04] MEDS: ZINC OXIDE 30 GM TUBE TOP SCH ×3 (08:05→21:12)
[2022-07-04] MEDS: DORZOLAMIDE/TIMOLOL (OPTH SOL) 10 ML DRPETTE OP SCH ×2 (10:46→21:17)
[2022-07-04] MEDS ORDERED: POTASSIUM CHLORIDE 10MEQ EA PO ONE (11:00)
[2022-07-04 12:12] LABS: IGG/ALB RATIO CSF 0.26 (0.00-0.25)
[2022-07-04 13:04] LABS: CSF/SERUM ALBUMIN INDEX 4 (0-8)
[2022-07-04] MEDS: FUROSEMIDE 40 MG TAB PO SCH (17:29)
[2022-07-04] MEDS: FAMOTIDINE 20 MG TAB PO SCH (21:10)
[2022-07-04] MEDS: INSULIN GLARGINE 100 UNITS/ML VIAL SQ SCH (21:16)
[2022-07-04] MEDS: LATANOPROST(OPTH) 2.5 ML BTL OU SCH (21:17)
[2022-07-05] VITALS (10 sets, daily range): BP systolic 135–172; BP diastolic 54–69
[2022-07-05] MEDS: ALBUTEROL SULF 0.083% NEB SOLN 3 ML NEB NEB SCH ×4 (02:30→19:30)
[2022-07-05] MEDS: FUROSEMIDE 40 MG TAB PO SCH ×2 (05:18→18:56)
[2022-07-05 06:14] LABS: ALBUMIN 1.7 g/dL (3.5-5.0); ALBUMIN/GLOBULIN RATIO 0.5 (0.8-2.0); ANION GAP 10.6 mmol/L (8-16); CALCIUM 8.7 mg/dL (8.4-10.2); CREATININE, SERUM 3.01 mg/dL (0.57-1.11); POTASSIUM 3.6 mmol/L (3.5-5.1)
[2022-07-05] MEDS: ASPIRIN 81 MG ENTERIC COATED PO SCH (08:43)
[2022-07-05] MEDS: BRIMONIDINE TARTRATE (OPTH) 5 ML LIQD OP SCH ×3 (08:44→22:15)
[2022-07-05] MEDS: METOPROLOL TARTRATE 25 MG TAB PO SCH ×2 (08:45→17:52)
[2022-07-05] MEDS: ZINC OXIDE 30 GM TUBE TOP SCH ×3 (08:46→22:47)
[2022-07-05] MEDS: METOLAZONE 5 MG TAB PO SCH (08:46)
[2022-07-05] MEDS: INSULIN REGULAR, HUMAN 100 UNIT/1 ML SQ SCH ×4 (08:48→22:48)
[2022-07-05] MEDS: LIDOCAINE 4% PATCH TP SCH (10:26)
[2022-07-05] MEDS: DORZOLAMIDE/TIMOLOL (OPTH SOL) 10 ML DRPETTE OP SCH ×2 (10:27→22:47)
[2022-07-05] MEDS: FAMOTIDINE 20 MG TAB PO SCH (22:14)
[2022-07-05] MEDS: LATANOPROST(OPTH) 2.5 ML BTL OU SCH (22:46)
[2022-07-05] MEDS: INSULIN GLARGINE 100 UNITS/ML VIAL SQ SCH (22:48)
[2022-07-06] VITALS (8 sets, daily range): BP systolic 147–174; BP diastolic 48–68
[2022-07-06] MEDS: ALBUTEROL SULF 0.083% NEB SOLN 3 ML NEB NEB SCH ×4 (02:15→19:07)
[2022-07-06 04:52] LABS: BASOPHILS % 0.5 % (0.0-1.0); EOSINOPHILS # (AUTO) 0.9 (0.0-0.4); EOSINOPHILS % 10.6 % (0.0-6.0); HEMATOCRIT 29.1 % (34.2-44.1); HEMOGLOBIN 8.9 g/dL (12.0-16.0); LYMPHOCYTES # (AUTO) 1.1 (1.0-3.2); MEAN CORPUSCULAR HEMOGLOBIN 26.9 pg (28-32); MEAN CORPUSCULAR HGB CONC 30.6 g/dL (31-35); MEAN CORPUSCULAR VOLUME 87.9 fL (81-99); MONOCYTES # (AUTO) 0.9 (0.2-0.8); MONOCYTES % 10.6 % (4.4-11.3); NEUTROPHILS # (AUTO) 5.6 (2.1-6.9); NEUTROPHILS % 64.4 % (38.7-80.0); PLATELET COUNT 269 x10e3/uL (140-360); RED BLOOD COUNT 3.31 x10e6/uL (3.6-5.1); RED CELL DISTRIBUTION WIDTH 15.3 % (11.7-14.4)
[2022-07-06 05:12] LABS: ALBUMIN 1.9 g/dL (3.5-5.0); ALBUMIN/GLOBULIN RATIO 0.5 (0.8-2.0); ANION GAP 14.5 mmol/L (8-16); CALCIUM 9.1 mg/dL (8.4-10.2); CREATININE, SERUM 3.66 mg/dL (0.57-1.11); POTASSIUM 3.5 mmol/L (3.5-5.1)
[2022-07-06] MEDS: FUROSEMIDE 40 MG TAB PO SCH (06:38)
[2022-07-06] MEDS: INSULIN REGULAR, HUMAN 100 UNIT/1 ML SQ SCH ×4 (07:30→21:30)
[2022-07-06] MEDS: PANTOPRAZOLE SOD 40 MG TABEC PO SCH ×2 (08:43→16:44)
[2022-07-06] MEDS: LIDOCAINE 4% PATCH TP SCH (08:44)
[2022-07-06] MEDS: METOPROLOL TARTRATE 25 MG TAB PO SCH ×2 (08:44→16:45)
[2022-07-06] MEDS: ASPIRIN 81 MG ENTERIC COATED PO SCH (08:44)
[2022-07-06] MEDS: ZINC OXIDE 30 GM TUBE TOP SCH ×3 (09:00→21:44)
[2022-07-06] MEDS: DORZOLAMIDE/TIMOLOL (OPTH SOL) 10 ML DRPETTE OP SCH ×2 (10:30→21:44)
[2022-07-06] MEDS ORDERED: HEPARIN SOD (PORCINE) 1000 UNIT/ML SDV IV PRN (10:45)
[2022-07-06] MEDS: BRIMONIDINE TARTRATE (OPTH) 5 ML LIQD OP SCH (17:00)
[2022-07-06] MEDS: INSULIN GLARGINE 100 UNITS/ML VIAL SQ SCH (21:15)
[2022-07-06] MEDS: FAMOTIDINE 20 MG TAB PO SCH (21:39)
[2022-07-06] MEDS: LATANOPROST(OPTH) 2.5 ML BTL OU SCH (21:44)
[2022-07-07] VITALS (8 sets, daily range): BP systolic 139–184; BP diastolic 51–69
[2022-07-07] MEDS: ALBUTEROL SULF 0.083% NEB SOLN 3 ML NEB NEB SCH ×4 (00:30→19:25)
[2022-07-07] MEDS: FUROSEMIDE 40 MG TAB PO SCH ×2 (05:35→17:12)
[2022-07-07] MEDS: INSULIN REGULAR, HUMAN 100 UNIT/1 ML SQ SCH ×5 (08:30→22:42)
[2022-07-07] MEDS: ASPIRIN 81 MG ENTERIC COATED PO SCH (08:50)
[2022-07-07] MEDS: PANTOPRAZOLE SOD 40 MG TABEC PO SCH ×2 (08:50→17:11)
[2022-07-07] MEDS: METOPROLOL TARTRATE 25 MG TAB PO SCH ×2 (08:50→17:11)
[2022-07-07] MEDS: BRIMONIDINE TARTRATE (OPTH) 5 ML LIQD OP SCH ×2 (09:00→17:00)
[2022-07-07] MEDS: LIDOCAINE 4% PATCH TP SCH (09:00)
[2022-07-07] MEDS: ZINC OXIDE 30 GM TUBE TOP SCH ×3 (09:00→21:28)
[2022-07-07] MEDS: DORZOLAMIDE/TIMOLOL (OPTH SOL) 10 ML DRPETTE OP SCH ×2 (10:30→21:29)
[2022-07-07] MEDS: FAMOTIDINE 20 MG TAB PO SCH (21:27)
[2022-07-07] MEDS: CLONIDINE HCL 0.1 MG TAB PO PRN (21:28)
[2022-07-07] MEDS: LATANOPROST(OPTH) 2.5 ML BTL OU SCH (21:29)
[2022-07-07] MEDS: INSULIN GLARGINE 100 UNITS/ML VIAL SQ SCH (22:48)
[2022-07-07] MEDS: ZINC OXIDE / BALSAM PERU 30 GM TUBE TOP PRN (22:49)
[2022-07-07] MEDS: ACETAMINOPHEN 325 MG TAB PO PRN (22:53)
[2022-07-08] VITALS (8 sets, daily range): BP systolic 132–155; BP diastolic 51–84
[2022-07-08] MEDS: ALBUTEROL SULF 0.083% NEB SOLN 3 ML NEB NEB SCH ×4 (01:45→19:20)
[2022-07-08] MEDS: FUROSEMIDE 40 MG TAB PO SCH ×2 (06:03→17:43)
[2022-07-08] MEDS: INSULIN REGULAR, HUMAN 100 UNIT/1 ML SQ SCH ×4 (07:30→21:36)
[2022-07-08] MEDS: PANTOPRAZOLE SOD 40 MG TABEC PO SCH ×2 (07:30→16:05)
[2022-07-08] MEDS: ASPIRIN 81 MG ENTERIC COATED PO SCH (09:00)
[2022-07-08] MEDS: ZINC OXIDE 30 GM TUBE TOP SCH ×3 (09:00→21:25)
[2022-07-08] MEDS: METOPROLOL TARTRATE 25 MG TAB PO SCH ×2 (09:00→17:43)
[2022-07-08] MEDS: LIDOCAINE 4% PATCH TP SCH (10:18)
[2022-07-08] MEDS: DORZOLAMIDE/TIMOLOL (OPTH SOL) 10 ML DRPETTE OP SCH ×2 (10:23→21:25)
[2022-07-08] MEDS: BRIMONIDINE TARTRATE (OPTH) 5 ML LIQD OP SCH ×2 (10:24→17:00)
[2022-07-08] MEDS ORDERED: HEPARIN SOD (PORCINE) 1000 UNIT/ML SDV ONE (10:41)
[2022-07-08] MEDS: ACETAMINOPHEN 325 MG TAB PO PRN (16:05)
[2022-07-08] MEDS: LATANOPROST(OPTH) 2.5 ML BTL OU SCH (21:24)
[2022-07-08] MEDS: FAMOTIDINE 20 MG TAB PO SCH (21:24)
[2022-07-08] MEDS: INSULIN GLARGINE 100 UNITS/ML VIAL SQ SCH (21:37)
[2022-07-09 01:07] VITALS: BP 149/51
[2022-07-09] MEDS: ALBUTEROL SULF 0.083% NEB SOLN 3 ML NEB NEB SCH ×4 (02:00→18:40)
[2022-07-09 05:32] VITALS: BP 149/49
[2022-07-09] MEDS: FUROSEMIDE 40 MG TAB PO SCH ×2 (05:51→17:55)
[2022-07-09] MEDS: PANTOPRAZOLE SOD 40 MG TABEC PO SCH ×2 (07:30→17:16)
[2022-07-09] MEDS: INSULIN REGULAR, HUMAN 100 UNIT/1 ML SQ SCH ×3 (07:30→17:32)
[2022-07-09 08:00] VITALS: BP_SYST 146; BP_SYST 149; BP_DIAS 49; BP_DIAS 61
[2022-07-09] MEDS: ASPIRIN 81 MG ENTERIC COATED PO SCH (09:00)
[2022-07-09] MEDS: ZINC OXIDE 30 GM TUBE TOP SCH ×3 (09:00→21:58)
[2022-07-09] MEDS: LIDOCAINE 4% PATCH TP SCH (09:00)
[2022-07-09] MEDS: METOPROLOL TARTRATE 25 MG TAB PO SCH ×2 (09:00→17:35)
[2022-07-09] MEDS: BRIMONIDINE TARTRATE (OPTH) 5 ML LIQD OP SCH ×2 (09:00→17:33)
[2022-07-09] MEDS: DORZOLAMIDE/TIMOLOL (OPTH SOL) 10 ML DRPETTE OP SCH ×2 (10:30→21:59)
[2022-07-09 12:00] VITALS: BP 126/64
[2022-07-09 16:30] VITALS: BP 139/47
[2022-07-09 20:00] VITALS: BP 152/50
[2022-07-09] MEDS: FAMOTIDINE 20 MG TAB PO SCH (21:51)
[2022-07-09] MEDS: LATANOPROST(OPTH) 2.5 ML BTL OU SCH (21:59)
[2022-07-10] VITALS: BP 186/73
[2022-07-10] MEDS: ALBUTEROL SULF 0.083% NEB SOLN 3 ML NEB NEB SCH ×4 (01:00→19:25)
[2022-07-10] MEDS: INSULIN REGULAR, HUMAN 100 UNIT/1 ML SQ SCH ×5 (02:51→23:00)
[2022-07-10] MEDS: INSULIN GLARGINE 100 UNITS/ML VIAL SQ SCH ×2 (02:52→23:00)
[2022-07-10 04:00] VITALS: BP 158/45
[2022-07-10] MEDS: FUROSEMIDE 40 MG TAB PO SCH ×2 (05:07→16:51)
[2022-07-10] MEDS: PANTOPRAZOLE SOD 40 MG TABEC PO SCH ×2 (08:41→16:50)
[2022-07-10] MEDS: ASPIRIN 81 MG ENTERIC COATED PO SCH (08:41)
[2022-07-10] MEDS: METOPROLOL TARTRATE 25 MG TAB PO SCH ×2 (08:41→16:50)
[2022-07-10] MEDS: LIDOCAINE 4% PATCH TP SCH (08:42)
[2022-07-10] MEDS: ZINC OXIDE 30 GM TUBE TOP SCH ×3 (08:42→23:24)
[2022-07-10] MEDS: BRIMONIDINE TARTRATE (OPTH) 5 ML LIQD OP SCH ×2 (08:43→16:54)
[2022-07-10 09:08] VITALS: BP 159/43
[2022-07-10] MEDS: DORZOLAMIDE/TIMOLOL (OPTH SOL) 10 ML DRPETTE OP SCH ×2 (10:00→23:25)
[2022-07-10 12:00] VITALS: BP 164/60
[2022-07-10 12:58] LABS: ALBUMIN 2.5 g/dL (3.5-5.0); ALBUMIN/GLOBULIN RATIO 0.6 (0.8-2.0); ANION GAP 16.3 mmol/L (8-16); CALCIUM 9.4 mg/dL (8.4-10.2); CREATININE, SERUM 3.58 mg/dL (0.57-1.11); POTASSIUM 3.3 mmol/L (3.5-5.1)
[2022-07-10] MEDS ORDERED: POTASSIUM CHLORIDE 20 MEQ TAB CR PO ONE (14:00)
[2022-07-10] MEDS: ACETAMINOPHEN 325 MG TAB PO PRN ×2 (14:34→21:37)
[2022-07-10 15:12] LABS: ANION GAP 17.8 mmol/L (8-16); CALCIUM 9.5 mg/dL (8.4-10.2); CREATININE, SERUM 3.67 mg/dL (0.57-1.11); POTASSIUM 3.8 mmol/L (3.5-5.1)
[2022-07-10 16:46] VITALS: BP 197/66
[2022-07-10 20:00] VITALS: BP 188/79
[2022-07-10] MEDS: LATANOPROST(OPTH) 2.5 ML BTL OU SCH (23:00)
[2022-07-10] MEDS: FAMOTIDINE 20 MG TAB PO SCH (23:21)
[2022-07-10] MEDS: NIFEDIPINE CR 30 MG TAB PO SCH (23:48)
[2022-07-11] VITALS (9 sets, daily range): BP systolic 104–188; BP diastolic 40–79
[2022-07-11] MEDS: ALBUTEROL SULF 0.083% NEB SOLN 3 ML NEB NEB SCH ×4 (00:55→19:40)
[2022-07-11] MEDS: FUROSEMIDE 40 MG TAB PO SCH ×2 (05:59→17:01)
[2022-07-11] MEDS: INSULIN REGULAR, HUMAN 100 UNIT/1 ML SQ SCH ×4 (07:30→21:16)
[2022-07-11] MEDS: ACETAMINOPHEN 325 MG TAB PO PRN ×2 (07:58→15:37)
[2022-07-11] MEDS: ASPIRIN 81 MG ENTERIC COATED PO SCH (09:00)
[2022-07-11] MEDS: PANTOPRAZOLE SOD 40 MG TABEC PO SCH ×2 (09:03→17:01)
[2022-07-11] MEDS: ZINC OXIDE 30 GM TUBE TOP SCH ×3 (09:04→21:16)
[2022-07-11] MEDS: BRIMONIDINE TARTRATE (OPTH) 5 ML LIQD OP SCH ×2 (09:04→17:02)
[2022-07-11] MEDS: LIDOCAINE 4% PATCH TP SCH (09:04)
[2022-07-11] MEDS: METOPROLOL TARTRATE 25 MG TAB PO SCH ×2 (09:09→17:01)
[2022-07-11] MEDS: DORZOLAMIDE/TIMOLOL (OPTH SOL) 10 ML DRPETTE OP SCH ×2 (09:40→21:17)
[2022-07-11] MEDS ORDERED: MIDAZOLAM HCL 2 MG/2 ML VIAL ONE (10:00)
[2022-07-11] MEDS ORDERED: HEPARIN SOD (PORCINE) 1000 UNIT/ML SDV ONE (10:00)
[2022-07-11] MEDS ORDERED: FENTANYL CITRATE/PF 100MCG/2 ML INJ ONE (10:01)
[2022-07-11] MEDS ORDERED: SODIUM CHLORIDE 0.9% 250ML 250 ML ONE ×2 (10:02→10:05)
[2022-07-11] MEDS ORDERED: LIDOCAINE HCL 1% 2 ML AMP ONE (10:46)
[2022-07-11] MEDS: FAMOTIDINE 20 MG TAB PO SCH (21:09)
[2022-07-11] MEDS: NIFEDIPINE CR 30 MG TAB PO SCH (21:09)
[2022-07-11] MEDS: INSULIN GLARGINE 100 UNITS/ML VIAL SQ SCH (21:16)
[2022-07-11] MEDS: LATANOPROST(OPTH) 2.5 ML BTL OU SCH (21:17)
[2022-07-12] MEDS: ALBUTEROL SULF 0.083% NEB SOLN 3 ML NEB NEB SCH ×3 (01:30→13:00)
[2022-07-12 04:57] VITALS: BP 147/59
[2022-07-12] MEDS: FUROSEMIDE 40 MG TAB PO SCH (06:35)
[2022-07-12] MEDS: INSULIN REGULAR, HUMAN 100 UNIT/1 ML SQ SCH ×3 (07:30→16:50)
[2022-07-12 08:00] VITALS: BP 147/59
[2022-07-12 08:39] VITALS: BP 113/46
[2022-07-12] MEDS: METOPROLOL TARTRATE 25 MG TAB PO SCH ×2 (09:00→16:35)
[2022-07-12] MEDS: PANTOPRAZOLE SOD 40 MG TABEC PO SCH ×2 (10:19→16:34)
[2022-07-12] MEDS: ASPIRIN 81 MG ENTERIC COATED PO SCH (10:21)
[2022-07-12] MEDS: BRIMONIDINE TARTRATE (OPTH) 5 ML LIQD OP SCH ×2 (10:22→16:58)
[2022-07-12] MEDS: ZINC OXIDE 30 GM TUBE TOP SCH ×2 (10:22→16:17)
[2022-07-12] MEDS: LIDOCAINE 4% PATCH TP SCH (10:23)
[2022-07-12] MEDS ORDERED: ONDANSETRON HCL 4 MG ORAL DISINTEGRATING TAB PO PRN (11:30)
[2022-07-12] MEDS: DORZOLAMIDE/TIMOLOL (OPTH SOL) 10 ML DRPETTE OP SCH (11:35)
[2022-07-12 11:36] VITALS: BP 152/60
[2022-07-12] MEDS ORDERED: NIFEDIPINE ER30 M1 PO (12:52)
[2022-07-12 16:18] VITALS: BP 132/51
[2022-07-13] MEDS ORDERED: CLOPIDOGREL BISULFATE 75 MG TAB PO SCH (09:00)
== END 2022-07-12 17:18 | disposition home health service (06) | DRG 871 ==
LOC: ER 01:10 → ERHOLD 02:20 → ICU 21:08 → MED/SURG3 07-05 20:12 → MED/SURG2 07-05 20:22
PROVIDERS: ADMIT Internal Medicine; ATTEND Internal Medicine
PROC: 5A09357 Assistance with Respiratory Ventilation, Less than 24 Consecutive Hours, Continuous Positive Airway Pressure (ICD-10-PCS; 2022-06-22)
PROC: 3E03329 Introduction of Other Anti-infective into Peripheral Vein, Percutaneous Approach (ICD-10-PCS; 2022-06-22)
PROC: 5A1D70Z Performance of Urinary Filtration, Intermittent, Less than 6 Hours Per Day (ICD-10-PCS; principal; 2022-06-27)
PROC: 02HV33Z Insertion of Infusion Device into Superior Vena Cava, Percutaneous Approach (ICD-10-PCS; 2022-06-27)
PROC: 009U3ZX Drainage of Spinal Canal, Percutaneous Approach, Diagnostic (ICD-10-PCS; 2022-07-02)
PROC: 0JH63XZ Insertion of Tunneled Vascular Access Device into Chest Subcutaneous Tissue and Fascia, Percutaneous Approach (ICD-10-PCS; 2022-07-11)
PROC: 02HV33Z Insertion of Infusion Device into Superior Vena Cava, Percutaneous Approach (ICD-10-PCS; 2022-07-11)
DX: A41.81 Sepsis due to Enterococcus (principal); G92.8 Other toxic encephalopathy; J10.08 Influenza due to other identified influenza virus with other specified pneumonia; N18.6 End stage renal disease; J96.01 Acute respiratory failure with hypoxia; J69.0 Pneumonitis due to inhalation of food and vomit; N17.0 Acute kidney failure with tubular necrosis; G93.41 Metabolic encephalopathy; I13.2 Hypertensive heart and chronic kidney disease with heart failure and with stage 5 chronic kidney disease, or end stage renal disease; Z68.41 Body mass index [BMI] 40.0-44.9, adult; I50.32 Chronic diastolic (congestive) heart failure; E11.22 Type 2 diabetes mellitus with diabetic chronic kidney disease; Z99.2 Dependence on renal dialysis; Z79.4 Long term (current) use of insulin; T36.1X5A Adverse effect of cephalosporins and other beta-lactam antibiotics, initial encounter; E66.01 Morbid (severe) obesity due to excess calories; I25.10 Atherosclerotic heart disease of native coronary artery without angina pectoris; Z95.5 Presence of coronary angioplasty implant and graft; E88.09 Other disorders of plasma-protein metabolism, not elsewhere classified; K21.9 Gastro-esophageal reflux disease without esophagitis; E78.00 Pure hypercholesterolemia, unspecified; K76.9 Liver disease, unspecified; M06.9 Rheumatoid arthritis, unspecified; G47.30 Sleep apnea, unspecified; N30.91 Cystitis, unspecified with hematuria; R60.0 Localized edema; N64.9 Disorder of breast, unspecified; R65.20 Severe sepsis without septic shock
CPT/HCPCS: 32555; 36415; 36556; 36558; 51700; 62328; 70450; 71045; 71250; 74176; 74230; 74470; 76604; 76937; 77001; 80048; 80053; 81001; 82040; 82140; 82550; 82553; 82570; 82607; 82784; 82805; 82945; 82948; 83036; 83605; 83880; 83916; 84156; 84157; 84484; 85025; 85610; 85730; 86592; 86704; 86706; 86707; 86789; 87040; 87070; 87086; 87186; 87205; 87340; 87350; 87400; 87476; 87529; 89051; 90962; 93306; 94660; 94799; 96372; 99251; 99284; C1769; C1892; J0360; J0690; J1644; J1815; J1817; J1940; J2001; J2150; J2250; J2405; J2543; J3010; J3480; J7030; J7050